=== PATIENT | male | born 1955 | race Caucasian/White ===

== ENCOUNTER → 2017-12-04 | Outpatient (CLI) | payer OTHER ==
[~2017-12-04] MED LIST: AMIT25 PO; Actos15 MG PO; CIPRO500 MG PO; DICL75ER PO; Florastor250 MG PO; HYDACE5 PO; Hydrocodone-Ap1 EA20 PO; LEVFLO500 PO; LISI20 PO; Lisinopril2.5 MG PO; MELO7.5 PO; METF500 PO; METO25ER PO; NITR.4SL SL; NORT75 PO; NUTRISOURCE FIBE4 GM PO; PRAV20 PO; Plavix75 MG PO; QUET100; QUET200 PO; Rocephin 1g1 G/50 ML IV; SANTYL30 GM TOP; SERT100 PO; Seroquel Xr50 MG PO; TRAZ100 PO; TRAZ50 PO
[2017-12-04 16:30] LABS: BASOPHILS ABSOLUTE AUTO 0.03 K/mm3 (0.00-0.23); BASOPHILS PERCENT AUTO 0 % (0-2); EOSINOPHILS ABSOLUTE AUTO 0.27 K/mm3 (0.00-0.68); EOSINOPHILS PERCENT AUTO 3 % (0-6); Hematocrit 38.8 % (37.0-53.0); Hemoglobin 12.8 g/dL (13.5-17.5); IMMATURE GRAN ABSOLUTE AUTO 0.06 K/mm3 (0.00-0.10); IMMATURE GRAN PERCENT AUTO 1 % (0-1); LYMPHOCYTES ABSOLUTE AUTO 2.01 K/mm3 (0.84-5.20); LYMPHOCYTES PERCENT AUTO 22 % (21-46); MONOCYTES PERCENT AUTO 8 % (4-13); Mean Corpuscular HGB 28.3 pg (26.0-34.0); Mean Corpuscular Volume 86 fL (80-100); Mean Platelet Volume 10.3 fL (9.1-12.4); NEUTROPHILS ABSOLUTE AUTO 6.14 K/mm3 (1.96-9.15); NEUTROPHILS PERCENT AUTO 67 % (41-73); Platelet Count 116 K/mm3 (150-400); RDW Coefficient Variation 13.7 % (11.7-14.2); RDW Standard Deviation 42.3 fL (35.1-46.3); Red Blood Cell Count 4.53 M/mm3 (4.30-5.90); White Blood Cell Count 9.21 K/mm3 (4.00-11.30)
[2017-12-04 16:50] LABS: Alanine Aminotransfer (ALT/SGP 21 U/L (12-78); Albumin, Blood 3.7 g/dL (3.4-5.0); Alk Phos 61 U/L (40-126); Anion Gap 11 mmol/L (6-16); Aspartate Aminotrans (AST/SGOT 13 U/L (12-37); Bilirubin, Total 0.2 mg/dL (0.1-1.0); Blood Urea Nitrogen 20 mg/dL (8-24); CO2, Blood 24 mmol/L (21-32); Chloride, Blood 103 mmol/L (98-108); Creatinine, Blood 1.81 mg/dL (0.60-1.20); Globulin, Blood 3.7 g/dL (2.2-4.0); Glomerular Filtration Rate 38 (60-); Glucose, Blood 119 mg/dL (70-99); Magnesium, Blood 1.6 mg/dL (1.6-2.4); Potassium, Blood 4.8 mmol/L (3.5-5.5); Sodium, Blood 138 mmol/L (136-145); Thyroid Stimulating Hormone 2.639 uIU/mL (0.360-4.800); Total Protein, Blood 7.4 g/dL (6.4-8.2)
[2017-12-04 16:51] LABS: Troponin I <0.017 ng/mL (0.000-0.040)
== END ==
LOC: LAB EV 16:26 → LAB SHORT 16:26
PROVIDERS: Physician Assistant Medical
DX: R07.89 Other chest pain (principal); R53.83 Other fatigue
CPT/HCPCS: 80053; 83735; 84443; 84484; 85025

== ENCOUNTER 2017-12-06 12:21 | Day surgery (SDC) | payer OTHER ==
[~2017-12-06] VITALS: Ht 182.9 cm; Wt 100.9 kg
== END 2017-12-06 14:57 | disposition home or self-care (01) ==
LOC: ORSCSDS 12:21
PROVIDERS: Podiatrist
PROC: 0QBP0ZX Excision of Left Metatarsal, Open Approach, Diagnostic (ICD-10-PCS; principal; 2017-12-06 13:45)
DX: L97.422 Non-pressure chronic ulcer of left heel and midfoot with fat layer exposed (principal); E11.621 Type 2 diabetes mellitus with foot ulcer; M25.775 Osteophyte, left foot; Z79.899 Other long term (current) drug therapy; I10 Essential (primary) hypertension
CPT/HCPCS: 82947; 88305; 88311; J0690; J1100; J2250; J2405; J3010; J7120

== ENCOUNTER → 2018-10-02 | Outpatient (CLI) | payer OTHER | LOC: LAB SHORT 16:58 → LAB EV 16:58 | DX: E11.22 Type 2 diabetes mellitus with diabetic chronic kidney disease (principal); N18.9 Chronic kidney disease, unspecified | CPT/HCPCS: 82043 ==

== ENCOUNTER → 2020-02-19 | Outpatient (CLI) | payer OTHER, MEDICARE ==
[2020-02-19 16:31] LABS: BASOPHILS ABSOLUTE AUTO 0.05 K/mm3 (0.00-0.23); BASOPHILS PERCENT AUTO 1 % (0-2); EOSINOPHILS ABSOLUTE AUTO 0.24 K/mm3 (0.00-0.68); EOSINOPHILS PERCENT AUTO 3 % (0-6); Hematocrit 36.7 % (37.0-53.0); Hemoglobin 11.5 g/dL (13.5-17.5); IMMATURE GRAN ABSOLUTE AUTO 0.02 K/mm3 (0.00-0.10); IMMATURE GRAN PERCENT AUTO 0 % (0-1); LYMPHOCYTES ABSOLUTE AUTO 1.82 K/mm3 (0.84-5.20); LYMPHOCYTES PERCENT AUTO 24 % (21-46); MONOCYTES ABSOLUTE AUTO 0.62 K/mm3 (0.16-1.47); MONOCYTES PERCENT AUTO 8 % (4-13); Mean Corpuscular HGB 23.7 pg (26.0-34.0); Mean Corpuscular HGB Conc 31.3 g/dL (31.5-36.5); Mean Corpuscular Volume 76 fL (80-100); Mean Platelet Volume 9.4 fL (9.1-12.4); NEUTROPHILS PERCENT AUTO 64 % (41-73); Platelet Count 164 K/mm3 (150-400); RDW Coefficient Variation 19.4 % (11.7-14.2); RDW Standard Deviation 51.3 fL (35.1-46.3); Red Blood Cell Count 4.85 M/mm3 (4.30-5.90); White Blood Cell Count 7.55 K/mm3 (4.00-11.30)
[2020-02-19 16:42] LABS: Albumin/Globulin Ratio 1.1 (0.8-1.8); Bilirubin, Total 0.2 mg/dL (0.1-1.0); Calcium, Blood 8.9 mg/dL (8.5-10.1); Creatinine, Blood 1.44 mg/dL (0.60-1.20); Globulin, Blood 3.5 g/dL (2.2-4.0); Potassium, Blood 4.8 mmol/L (3.5-5.5); Total Protein, Blood 7.5 g/dL (6.4-8.2)
== END | disposition home or self-care (01) ==
LOC: LAB SHORT 16:25 → LAB EV 16:25
PROVIDERS: Family Medicine
DX: R11.2 Nausea with vomiting, unspecified (principal)
CPT/HCPCS: 80053; 85025

== ENCOUNTER 2020-03-23 07:08 | Emergency (ER) | payer OTHER, MEDICARE ==
[~2020-03-23] VITALS: Ht 182.9 cm; Wt 85.7 kg
[2020-03-23] MEDS ORDERED: ZOFRAN4 MG PO (07:56)
[2020-03-23] MEDS ORDERED: TRAZODONE TAB 100 (07:56)
[2020-03-23] MEDS ORDERED: FARXIGA5 MG (07:56)
[2020-03-23] MEDS ORDERED: DICL75ER PO (07:56)
[2020-03-23] MEDS ORDERED: QUETIAPINE FUMA50 MG PO (07:57)
[2020-03-23] MEDS ORDERED: CYCLOBENZAPR TAB 10M (07:57)
[2020-03-23] MEDS ORDERED: DULOXETINE HCL60 M1 PO (07:57)
[2020-03-23] MEDS ORDERED: METFORMIN HCL500 M2 PO (07:57)
[2020-03-23] MEDS ORDERED: LISINOPRIL TAB 5MG (07:57)
[2020-03-23] MEDS ORDERED: Pravachol40 MG PO (07:57)
[2020-03-23 08:41] LABS: BASOPHILS ABSOLUTE AUTO 0.02 K/mm3 (0.00-0.23); BASOPHILS PERCENT AUTO 0 % (0-2); EOSINOPHILS ABSOLUTE AUTO 0.13 K/mm3 (0.00-0.68); EOSINOPHILS PERCENT AUTO 2 % (0-6); Hematocrit 38.5 % (37.0-53.0); Hemoglobin 11.5 g/dL (13.5-17.5); IMMATURE GRAN ABSOLUTE AUTO 0.03 K/mm3 (0.00-0.10); IMMATURE GRAN PERCENT AUTO 0 % (0-1); LYMPHOCYTES ABSOLUTE AUTO 0.36 K/mm3 (0.84-5.20); LYMPHOCYTES PERCENT AUTO 5 % (21-46); MONOCYTES ABSOLUTE AUTO 0.59 K/mm3 (0.16-1.47); MONOCYTES PERCENT AUTO 8 % (4-13); Mean Corpuscular HGB 23.3 pg (26.0-34.0); Mean Corpuscular HGB Conc 29.9 g/dL (31.5-36.5); Mean Corpuscular Volume 78 fL (80-100); NEUTROPHILS ABSOLUTE AUTO 5.96 K/mm3 (1.96-9.15); NEUTROPHILS PERCENT AUTO 84 % (41-73); RDW Coefficient Variation 17.9 % (11.7-14.2); RDW Standard Deviation 50.7 fL (35.1-46.3); Red Blood Cell Count 4.94 M/mm3 (4.30-5.90); White Blood Cell Count 7.09 K/mm3 (4.00-11.30)
[2020-03-23 08:50] LABS: Alanine Aminotransfer (ALT/SGP 23 U/L (12-78); Albumin, Blood 3.5 g/dL (3.4-5.0); Albumin/Globulin Ratio 0.8 (0.8-1.8); Alk Phos 75 U/L (50-136); Anion Gap 7 mmol/L (6-16); Aspartate Aminotrans (AST/SGOT 18 U/L (12-37); Bilirubin, Total 0.3 mg/dL (0.1-1.0); Blood Urea Nitrogen 19 mg/dL (8-24); Bun/Creatinine Ratio 14.7 (12.0-20.0); CO2, Blood 21 mmol/L (21-32); Calcium, Blood 8.6 mg/dL (8.5-10.1); Chloride, Blood 106 mmol/L (98-108); Creatinine, Blood 1.29 mg/dL (0.60-1.20); Globulin, Blood 4.2 g/dL (2.2-4.0); Glomerular Filtration Rate 59 (60-); Glucose, Blood 276 mg/dL (70-99); Potassium, Blood 3.2 mmol/L (3.5-5.5); Sodium, Blood 134 mmol/L (136-145); Total Protein, Blood 7.7 g/dL (6.4-8.2)
[2020-03-23 08:52] LABS: Troponin I <0.015 ng/mL (0.000-0.040)
[2020-03-23 09:12] LABS: Platelet Count 45 K/mm3 (150-400)
[2020-03-23] MEDS ORDERED: POTA10T PO (09:31)
[2020-03-23] MEDS ORDERED: ONDA4 MM (09:31)
== END 2020-03-23 10:20 | disposition home or self-care (01) ==
LOC: ER 07:08
PROVIDERS: Emergency Medicine
DX: R55 Syncope and collapse (principal); R19.7 Diarrhea, unspecified; E87.6 Hypokalemia; E86.0 Dehydration; D69.6 Thrombocytopenia, unspecified; F10.10 Alcohol abuse, uncomplicated; Z88.2 Allergy status to sulfonamides; Z88.5 Allergy status to narcotic agent; Z79.84 Long term (current) use of oral hypoglycemic drugs; Z79.899 Other long term (current) drug therapy; E11.42 Type 2 diabetes mellitus with diabetic polyneuropathy; K21.9 Gastro-esophageal reflux disease without esophagitis
CPT/HCPCS: 36415; 80053; 83690; 84484; 85025; 93005; 93010; 96360; 99284-25; A9270; A9270-GY; J7030

== ENCOUNTER → 2020-04-27 | Outpatient (CLI) | payer OTHER, MEDICARE ==
[~2020-04-27] MED LIST changes: +CYCLOBENZAPR TAB 10M; +DULOXETINE HCL60 M1 PO; +FARXIGA5 MG; +LISINOPRIL TAB 5MG; +METFORMIN HCL500 M2 PO; +ONDA4 MM; +POTA10T PO; +Pravachol40 MG PO; +QUETIAPINE FUMA50 MG PO; +TRAZODONE TAB 100; +ZOFRAN4 MG PO
[2020-04-29 14:43] LABS: Stool Occult Bld Immuno 1 Negative (NEGATIVE)
== END | disposition home or self-care (01) ==
LOC: LAB SHORT 03:00 → LAB EV 03:00
PROVIDERS: Physician Assistant
DX: D64.9 Anemia, unspecified (principal)
CPT/HCPCS: 82274

== ENCOUNTER → 2020-07-14 | Outpatient (CLI) | payer OTHER, MEDICARE ==
[2020-07-16 15:20] LABS: CORONAVIRUS (COVID19) CSH-NRL Negative (Negative)
== END ==
LOC: LAB SHORT 13:37 → LAB 13:37
PROVIDERS: Physician Assistant
DX: Z20.828 Contact with and (suspected) exposure to other viral communicable diseases (principal)
CPT/HCPCS: U0003

== ENCOUNTER 2021-01-24 11:02 | Day surgery (SDC) | payer OTHER ==
[~2021-01-24] VITALS: Ht 182.9 cm; Wt 87.9 kg
[~2021-01-24 11:02] MED LIST changes: +CYCL10 PO; +GLUCOPHAGE1000 M1 PO; +NORTRIPTYLINE H PO; +PRAVASTATIN SOD40 MG PO; +Prozac40 MG PO; +SILVADENE20 GM; +Voltaren100 GM TOP
--- NOTE | 2021-01-24 11:40 | NUR ---
01/24/21 1139 Hannah Servni, RN CHARTING FOR PREOP
== END 2021-01-24 13:41 | disposition home or self-care (01) ==
LOC: ORSCSDS 11:02
PROVIDERS: Podiatrist Foot & Ankle Surgery
PROC: 0Y6P0Z1 Detachment at Right 1st Toe, High, Open Approach (ICD-10-PCS; principal; 2021-01-24 12:30)
DX: E08.621 Diabetes mellitus due to underlying condition with foot ulcer (principal); F41.8 Other specified anxiety disorders; Z79.84 Long term (current) use of oral hypoglycemic drugs; Z79.899 Other long term (current) drug therapy
CPT/HCPCS: 82947; 88305; 88311; J0171; J0690; J1100; J1885; J2405; J2704; J3010; J7120

== ENCOUNTER 2021-05-16 01:22 | Day surgery (SDC) | payer OTHER | END 2021-05-16 23:04 | disposition home or self-care (01) | LOC: WOUND 01:22 | PROC: 0HBNXZZ Excision of Left Foot Skin, External Approach (ICD-10-PCS; principal; 2021-05-16) | PROC: 0JBR0ZZ Excision of Left Foot Subcutaneous Tissue and Fascia, Open Approach (ICD-10-PCS; principal; 2021-05-16) | DX: E11.621 Type 2 diabetes mellitus with foot ulcer (principal); L97.422 Non-pressure chronic ulcer of left heel and midfoot with fat layer exposed; L97.425 Non-pressure chronic ulcer of left heel and midfoot with muscle involvement without evidence of necrosis; E11.622 Type 2 diabetes mellitus with other skin ulcer; L97.829 Non-pressure chronic ulcer of other part of left lower leg with unspecified severity; L97.529 Non-pressure chronic ulcer of other part of left foot with unspecified severity; E11.52 Type 2 diabetes mellitus with diabetic peripheral angiopathy with gangrene; I96 Gangrene, not elsewhere classified; E11.42 Type 2 diabetes mellitus with diabetic polyneuropathy; M14.672 Charcot's joint, left ankle and foot; Z89.411 Acquired absence of right great toe | CPT/HCPCS: A9270; G0463 ==

== ENCOUNTER 2021-05-18 10:13 | Inpatient (IN) | payer OTHER ==
[~2021-05-18] VITALS: Ht 182.9 cm; Wt 85.8 kg
[2021-05-18 11:23] LABS: BASOPHILS ABSOLUTE AUTO 0.07 K/mm3 (0.00-0.23); BASOPHILS PERCENT AUTO 0 % (0-2); EOSINOPHILS ABSOLUTE AUTO 0.12 K/mm3 (0.00-0.68); EOSINOPHILS PERCENT AUTO 1 % (0-6); Hematocrit 37.6 % (37.0-53.0); Hemoglobin 12.1 g/dL (13.5-17.5); IMMATURE GRAN ABSOLUTE AUTO 0.16 K/mm3 (0.00-0.10); IMMATURE GRAN PERCENT AUTO 1 % (0-1); LYMPHOCYTES ABSOLUTE AUTO 0.71 K/mm3 (0.84-5.20); LYMPHOCYTES PERCENT AUTO 4 % (21-46); MONOCYTES PERCENT AUTO 9 % (4-13); Mean Corpuscular HGB 27.3 pg (26.0-34.0); Mean Corpuscular HGB Conc 32.2 g/dL (31.5-36.5); Mean Corpuscular Volume 85 fL (80-100); NEUTROPHILS PERCENT AUTO 85 % (41-73); Platelet Count 72 K/mm3 (150-400); RDW Coefficient Variation 15.4 % (11.7-14.2); Red Blood Cell Count 4.44 M/mm3 (4.30-5.90); White Blood Cell Count 18.46 K/mm3 (4.00-11.30)
[2021-05-18 11:39] LABS: Alanine Aminotransfer (ALT/SGP 24 U/L (12-78); Albumin, Blood 2.5 g/dL (3.4-5.0); Albumin/Globulin Ratio 0.5 (0.8-1.8); Alk Phos 123 U/L (50-136); Anion Gap 11 mmol/L (6-16); Aspartate Aminotrans (AST/SGOT 12 U/L (12-37); Bilirubin, Total 0.4 mg/dL (0.1-1.0); Blood Urea Nitrogen 16 mg/dL (8-24); Bun/Creatinine Ratio 14.5 (12.0-20.0); CO2, Blood 21 mmol/L (21-32); Calcium, Blood 9.2 mg/dL (8.5-10.1); Chloride, Blood 102 mmol/L (98-108); Globulin, Blood 5.3 g/dL (2.2-4.0); Glomerular Filtration Rate >60 (60-); Glucose, Blood 210 mg/dL (70-99); Potassium, Blood 4.5 mmol/L (3.5-5.5); Sodium, Blood 134 mmol/L (136-145); Total Protein, Blood 7.8 g/dL (6.4-8.2)
[2021-05-18 12:23] LABS: SARS-Cov-2 (COVID-19) PCR, MMC POSITIVE (NEGATIVE)
[2021-05-18] MEDS ORDERED: AMITRIPTYLINE H25 MG PO (12:27)
[2021-05-18] MEDS ORDERED: TRAZ100 PO (12:28)
[2021-05-18] MEDS ORDERED: DICL75ER PO (12:28)
[2021-05-18] MEDS ORDERED: LEVOCETIRIZINE D5 MG PO (12:29)
[2021-05-18] MEDS ORDERED: FARXIGA5 MG PO (12:29)
[2021-05-18] MEDS ORDERED: DULOXETINE HCL60 M1 PO (12:30)
[2021-05-18] MEDS ORDERED: METFORMIN HCL500 M2 PO (12:30)
[2021-05-18] MEDS ORDERED: SEROQUEL50 MG PO (12:30)
--- NOTE | 2021-05-18 15:00 | NUR ---
PT ARRIVED TO ROOM 313-2 VIA GURNEY AND SETTLED IN TO BED. A/OX3. COOPERATIVE AND INFORMATIVE. LLE WITH WARMTH AND SWELLING MID CALF TO FOOT. WOUND TO LATERAL SIDE OF FOOT AND LARGE BLISTER OR ABSCESS TO MEDIAL SECTION OF FOOT. REPORTS PAIN WORSENED OVER LAST 2 TO 3 DAYS.
--- NOTE | 2021-05-18 18:51 | NUR ---
SHIFT SUMMARY DR. MIGUEL GUTIERREZ IN TO SEE PT WITH ORDERS TO BE NPO AFTER MIDNIGHT. PLANS FOR SURGERY TOMORROW. DRESSING APPLIED TO L FOOT DUE TO DRAINAGE. PLEASANT THROUGH SHIFT WITH NO COMPLAINTS. REPORT CONDITION TO ONCOMING SHIFT.
[2021-05-19 05:14] LABS: BASOPHILS ABSOLUTE AUTO 0.05 K/mm3 (0.00-0.23); BASOPHILS PERCENT AUTO 1 % (0-2); EOSINOPHILS ABSOLUTE AUTO 0.16 K/mm3 (0.00-0.68); EOSINOPHILS PERCENT AUTO 2 % (0-6); Hemoglobin 10.3 g/dL (13.5-17.5); IMMATURE GRAN ABSOLUTE AUTO 0.16 K/mm3 (0.00-0.10); IMMATURE GRAN PERCENT AUTO 2 % (0-1); LYMPHOCYTES ABSOLUTE AUTO 0.75 K/mm3 (0.84-5.20); LYMPHOCYTES PERCENT AUTO 7 % (21-46); MONOCYTES ABSOLUTE AUTO 1.16 K/mm3 (0.16-1.47); MONOCYTES PERCENT AUTO 11 % (4-13); Mean Corpuscular HGB Conc 32.2 g/dL (31.5-36.5); Mean Corpuscular Volume 84 fL (80-100); Mean Platelet Volume 10.3 fL (9.1-12.4); NEUTROPHILS ABSOLUTE AUTO 8.01 K/mm3 (1.96-9.15); NEUTROPHILS PERCENT AUTO 78 % (41-73); Platelet Count 71 K/mm3 (150-400); RDW Coefficient Variation 15.5 % (11.7-14.2); RDW Standard Deviation 47.3 fL (35.1-46.3); Red Blood Cell Count 3.82 M/mm3 (4.30-5.90); White Blood Cell Count 10.29 K/mm3 (4.00-11.30)
--- NOTE | 2021-05-19 05:37 | NUR ---
SHIFT SUMMARY; AOX3, COOPERATIVE. LEFT FOOT CELLULITIS, REDNESS UP TO ANKLE AREA. MEDIAL SIDE OF FOOT HAS A LARGE BLISTER FORMED AREA THAT IS DRAINING SEROUS FLUID, ON THE LATERAL SIDE OF THE FOOT THERE IS ULCER THAT IS ALSO DRAINING. INDEPENDENT WITH URINAL. IVF INFUSING ALL NIGHT. SPIKED A TEMP OF 101 BUT ON REPEAT WAS 99.2. SLEPT WELL T/O THE NIGHT. OCCATIONAL TACHYCARDIA IN THE LOW 100'S. POSITIVE BLOOD CULTURES GRAM + COCCI IN CLUSTERS, ON VANCO. CALL LIGHT IN REACH.
[2021-05-19 05:51] LABS: Alanine Aminotransfer (ALT/SGP 26 U/L (12-78); Albumin, Blood 2.1 g/dL (3.4-5.0); Albumin/Globulin Ratio 0.5 (0.8-1.8); Alk Phos 120 U/L (50-136); Anion Gap 6 mmol/L (6-16); Aspartate Aminotrans (AST/SGOT 26 U/L (12-37); Bilirubin, Total 0.3 mg/dL (0.1-1.0); Blood Urea Nitrogen 17 mg/dL (8-24); CO2, Blood 24 mmol/L (21-32); Calcium, Blood 8.6 mg/dL (8.5-10.1); Chloride, Blood 103 mmol/L (98-108); Creatinine, Blood 1.13 mg/dL (0.60-1.20); Globulin, Blood 4.4 g/dL (2.2-4.0); Glomerular Filtration Rate >60 (60-); Glucose, Blood 184 mg/dL (70-99); Sodium, Blood 133 mmol/L (136-145); Total Protein, Blood 6.5 g/dL (6.4-8.2)
--- NOTE | 2021-05-19 09:47 | NUR ---
ADMIT: 05/18/21 DISCHARGE: TBD DX: celulitis of L lower limb CC: Yolanda Deleon RESIDENCE: Independent - Home - [facility] [address], [place]. [address] Next of Kin/Contacts: Afshan Dueñas, - [phone]. Felix Dueñas, Child - [phone] Prior to admit - DME: DM supplies and Walker CCM: None HHC/Hospice: None Update 05/19/21: Pt. admitted with celulitis of L lower limb. Has been receiving care at wound center. Per chart review, amputation is necessary and pt. currently in surgery. Pt. is COVID positive with notes in EMR that pt. initially tested positive on 04/16/21. Prior to hospital admit, pt. living at home with Afshan. He has been independent with 's support. Anticipate needs at time of discharge to include: SNF rehab (pt. has [facility] - will need prior auth), wheelchair, hospital F/U appt. within 5-7 days with pcp, ortho F/U appt.
--- NOTE | 2021-05-19 10:45 | NUR ---
PT TEMP INCREASED FROM 100.5 TO 101.0 DESPITE GIVING TYLENOL. WILL CONTINUE TO MONITOR AND REPORT IF TEMP CONTINUES TO INCREASE.
--- NOTE | 2021-05-19 13:26 | NUR ---
WOUND DRESSING CHANGED. WOUND CLEANSED AND APPLIED EXUDRYX2, WRAPPED W/KERLEX AND TAPED INTO PLACE. WOUND HAS LARGE AMOUNT OF PURULENT DRAINAGE.
[2021-05-19 14:17] LABS: SARS-Cov-2 (COVID-19) PCR, MMC POSITIVE (NEGATIVE)
--- NOTE | 2021-05-19 17:19 | NUR ---
SHIFT SUMMARY: PT A/O X3, STANDBY ASSIST IN ROOM. 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 PT HAD ELEVATED TEMPERATURE THIS AM, TYLENOL EFFECTIVE IN TREATING. PT PAIN MANAGED WITH TYLENOL ALSO. PLAN IS FOR PT TO COME BACK TO THE MEDICAL FLOOR ONCE PT HAS RECOVERED.
--- NOTE | 2021-05-19 19:10 | NUR ---
ASSUMED CARE. AIYANA ARRIVED FROM OR SLEEPY BUT AWAKE. BEDSIDE REPORT RECEIVED. AIYANA REPORTS PAIN IS "OK" DOES HAVE SHARP INTERMINTENT PAIN IN THE AMPUTATION. HE RECEIVED 8MG OF MORPHINE AT WHICH I WAS TOLD DID NOT COVER HIS PAIN, 1MG OF DILUDID WAS GIVEN AFTERWARDS BEFORE COMING TO THE FLOOR. AIYANA DOES REPORT PAIN IN THROAT, DUE TO TUBE IN THROAT. LBKA DRESSING IS CDI WITH SOCK OVER IT, ELEVATED ON PILLOW. ASKING FOR WATER. VS WNL AT THIS TIME. CALL LIGHT GIVEN. START OF POST-OP CARE.
--- NOTE | 2021-05-19 21:00 | NUR ---
GRASSLAND CONSERVATIONIST GIVE PUDDING, AIYANA WAS ONLY ABLE TO TAKE A FEW BITES STATE HIS THROAT IS REALLY SORE, VOICE IS NOTED TO HAVE CHANGED. NOTED TONGUE WAS SLIGHTLY SWOLLEN, WAS ABLE TO VISUALIZE BACK OF THROAT WHICH WAS RED. HE DID HAVE SOME DIFFICULT TIME TALKING HE SAID WAS DUE TO PAIN. WHEN ASKED IF HE FELT HIS THROAT WAS SWOLLEN HE SAID NO JUST HIS TONGUE. LUNG SOUNDS WERE CLEAR, OCCATIONAL COUGH DUE TO SILIVA IN THROAT. ABLE TO SWOLLEN HIS TRAZADONE ONE AT A TIME BUT HE REPORTED AGAIN PAIN WHEN DOING SO. HE WANTED TO WAIT ON HIS OTHER MEDS AT THIS TIME, WHICH WAS LEFT FOR HIM TO TAKE ONE AT A TIME WHEN HE THROAT WAS NOT HURTING SO BAD. CALL LIGHT IN REACH, WILL CONTINUE TO MONITOR.
--- NOTE | 2021-05-19 22:40 | NUR ---
RAPID RESPONSE/CODE JESSICA: 2144: WENT TO ANSER CALL LIGHT, FOUND PATIENT SITTING IN SIDE OF BED. GRUNTING AND TRYING TO CATCH HIS BREATH. TONGUE WAS NOTED TO BE ENLARGED, SWOLLEN, PATIENT UNABLE TO CLOSE HIS MOUTH, SIGNALING TO HIS THROAT THAT HE COULD NOT BREATH. NOTED EVEN HIS THROAT WAS SWOLLEN. 2150: CYLINDER SANDER OPERATOR CALLED, PLACED PATIENT ON BIOX, SATS 97% ON 3 LITERS, UNABLE TO VISUALIZE BACK OF HIS THROAT DUE TO AIRWAY OCCLUDED DUE TO SWELLING. TEAM ARRIVED. 2199: BENADRYL 25MG IV GIVEN, NO CHANGE. 2203: CODE JESSICA CALLED. ICU NURSE IN CHARGE OF IV PUSH MEDICATIONS. RT TRYING TO VISUALIZE INTUBATION FEILD, WHICH IS DIFFICULT TO SEE. PATIENT WENT UNCONSCIOUS, PULSE STILL PALPITABLE. SEVERAL ATTEMPTS WERE MADE TO INTUBATE WITH NO SUCCESS. CALL FOR EDGAR NAVARRETE. 2211: PATIENT INTUBATED AND RT AT BEDSIDE WITH AIRBAG. SATS 100%, RISE OF CHEST NOTED. PLAN FOR ICU TRANSFER. VITALS 141/79, 99% ON VENT. 114 PULSE. 2225: XRAY TO CONFIRM PLACEMENT. ICU NOTIFED OF TRANSFER. PATIENT TO GO TO PCU 14. 2231: PATIENT TRANSFERRED. 2240: MILVIA INFORMED OF THE PATIENTS CHANGE. SHE DENIED ANY OTHER KNOWN ALLERGIES TO MEDICATIONS OTHER THAN OXYCODONE. CONFIRMED HE HAD DILUDID SEVERAL TIMES IN THE PAST AND DID FINE. SHE DID MENTION THAT FAR SHE KNEW HE HAS NEVER HAD MORPHINE BEFORE. SHE WILL CALL IN AM BUT IS AWARE OF TRANSFER.
[2021-05-20 02:15] LABS: Source, Urine Catheter
[2021-05-20 02:18] LABS: Bilirubin, Urine Neg (Neg); Blood, Urine 3+ (Neg); Glucose Qualitative, Urine 4+ (Neg); Ketones, Urine 3+ (Neg); Leukocyte Esterase, Urine Neg (Neg); Nitrite, Urine Neg (Neg); Protein, Urine 3+ (Neg); Urobilinogen, Urine NORM (Normal)
[2021-05-20 02:20] LABS: Appearance, Urine Clear (Clear); Color, Urine Yellow (P-Yellow)
[2021-05-20 02:24] LABS: Bacteria Few /hpf; Mucus Light (0-Heavy); Red Blood Cells, Urine 0-2 /hpf (0-2); Squamous Epithelial Cells Not Seen /hpf (Few); White Blood Cells, Urine 0-2 /hpf (0-5)
[2021-05-20 02:25] LABS: Amorphous Light (0-Heavy)
--- NOTE | 2021-05-20 07:31 | NUR ---
Assumed care of pt at 0700. Report received from Agus PICKETT. Pt initially in airborne isolation due to COVID. Per health department, pt does not need to be isolation anymore. At bedside report, pt was agitated. Sitting up in bed, pulling against restraints. High risk of self-extubation. Propofol increased to 75 mcg/kg/min. Fentanyl at 50 mcg/hr. Versed drip ordered, but has not yet been verified by pharmacy. debt management counselor placed call to Dr Betancourt to notify that pt was highly agitated and at risk of self-extubation. Provider ordered airport duty manager consult. Dr Agee at bedside shortly afterwards. Stated she would order ativan and precedex; precedex to be used for wean. Plan to have RT check patient for cuff leak and then evaluate if pt can be extubated.
--- NOTE | 2021-05-20 07:36 | NUR ---
SHIFT SUMMARY PT ARRIVED TO PCU 14 VENTILATED c OUT SEDATION. RSI PERFORMED FOR AIRWAY PROTECTION SECONDARY TO ANGIOEDEMA FROM POTENTIAL MEDICATION REACTION ON MEDICAL FLOOR. PT POST OP L BKA, DRESSING IN PLACE, BLOOD TINGE TO DRESSING ON ARRIVAL BUT NO CHANGES TO AMNT OF BLOOD T/O THE MORNING. FENTANYL GTT INITIATED @ 25MCG/HR, INCREASED TO 50MCG/HR DURING THE NIGHT, AND PROPOFOL GTT @ 30MCG/KG/MIN. ROMAN CATH AND PERIPHERAL 18 GA IV ESTABLISHED. PT INITIALLY RECOVERING FROM RSI MEDICATIONS AND UNRESPONSIVE, SEE PAPER CHART FOR MEDICATONS. T/O THE MORNING PT BECAME MORE RESPONSIVE, FOLLOWING COMMANDS BUT WOULD QUICKLY BECOME SEDATE WITH SMALL TITRATIONS TO PROPOFOL. AROUND 0600, PT SAT UP IN BED, VIOLENTLY PULLING AT RESTRAINTS. PROPOFOL TITRATED WITH LITTLE EFFECT. HOSPITALIST NOTIFIED, NEW ORDERS FOR VERSED GTT AND LOW DOSE LEVOPHED. NEWSPAPER STUFFER ALSO CALLED AND ARRIVED SHORTLY AFTER SHIFT CHANGE. NEW ORDERS CURRENTLY BEING PLACED. REPORT GIVEN TO ONCOMING NURSE.
[2021-05-20 13:51] LABS: Vancomycin, Trough 11.7 ug/mL (5.0-10.0)
--- NOTE | 2021-05-20 18:31 | NUR ---
Dr Mcgee in to see patient. Provider performed dressing change to site of L BKA.
--- NOTE | 2021-05-20 18:34 | NUR ---
SUMMARY Neuro: Pt receiving propofol 65 mcg/kg/min, fentanyl 50 mcg/hr, versed 2 mcg/hr. Responsive to verbal stimulus / light pressure. When on bar turner sedation, pt highly interactive- mouthing words to staff and pulling on restraints. Musculoskeletal: Pt currently laying on L side. Sits up in bed when on bar turner sedation. Currently being repositioned Q2H. In restraints to prevent self-extubation. Respiratory: 6.5 cm ETT, 26 cm ATG. Lungs coarse t/o. Bright %.red sputum suctioned from ETT. Vent settings ACVC 18/470/5/30%. RT assessed cuff leak this afternoon and cuff leak was absent still. Cardiac: SR per monitor. BP stable. GI: OG tube to LIS. Scant amount of brown aspirate in tubing. Absent BT. No BM this shift. : Denton catheter in place draining clear, yellow urine. Skin: Dressing to L BKA site changed this shift by Dr Jeremy Mcgee. Drain removed by provider. Site has staple, dressed with sterile gauze, ABD pad, kerlex, and radha wrap. Psychosocial: Unable to assess due to intubation, sedation. Spouse updated today by this RN.
--- NOTE | 2021-05-20 19:15 | NUR ---
report received-care resumed
[2021-05-21 03:45] LABS: BASOPHILS ABSOLUTE AUTO 0.04 K/mm3 (0.00-0.23); BASOPHILS PERCENT AUTO 0 % (0-2); EOSINOPHILS ABSOLUTE AUTO 0.05 K/mm3 (0.00-0.68); EOSINOPHILS PERCENT AUTO 0 % (0-6); Hematocrit 32.5 % (37.0-53.0); Hemoglobin 10.6 g/dL (13.5-17.5); IMMATURE GRAN ABSOLUTE AUTO 1.31 K/mm3 (0.00-0.10); IMMATURE GRAN PERCENT AUTO 8 % (0-1); LYMPHOCYTES ABSOLUTE AUTO 0.77 K/mm3 (0.84-5.20); LYMPHOCYTES PERCENT AUTO 5 % (21-46); MONOCYTES ABSOLUTE AUTO 1.04 K/mm3 (0.16-1.47); MONOCYTES PERCENT AUTO 7 % (4-13); Mean Corpuscular HGB 27.2 pg (26.0-34.0); Mean Corpuscular HGB Conc 32.6 g/dL (31.5-36.5); Mean Corpuscular Volume 84 fL (80-100); Mean Platelet Volume 10.7 fL (9.1-12.4); NEUTROPHILS ABSOLUTE AUTO 12.68 K/mm3 (1.96-9.15); NEUTROPHILS PERCENT AUTO 80 % (41-73); Platelet Count 138 K/mm3 (150-400); RDW Coefficient Variation 15.9 % (11.7-14.2); Red Blood Cell Count 3.89 M/mm3 (4.30-5.90); White Blood Cell Count 15.89 K/mm3 (4.00-11.30)
[2021-05-21 04:04] LABS: BAND PERCENT MAN 5 % (0-8); BASOPHILS PERCENT MAN 0 % (0-2); EOSINOPHILS PERCENT MAN 0 % (0-6); LYMPHOCYTES ABSOLUTE MAN 0.79 K/mm3 (0.84-5.20); LYMPHOCYTES PERCENT MAN 5 % (21-46); METAMYELOCYTE ABSOLUTE MAN 0.63 K/mm3 (0.00-0.00); METAMYELOCYTE PERCENT MAN 4 % (0-0); MONOCYTES ABSOLUTE MAN 0.79 K/mm3 (0.16-1.47); MONOCYTES PERCENT MAN 5 % (4-13); MYELOCYTE ABSOLUTE MAN 0.15 K/mm3 (0.00-0.00); MYELOCYTE PERCENT MAN 1 % (0-0); SEG NEUTROPHILS PERCENT MAN 80 % (41-73); TOTAL CELLS COUNTED 100
[2021-05-21 04:10] LABS: Alanine Aminotransfer (ALT/SGP 34 U/L (12-78); Albumin/Globulin Ratio 0.5 (0.8-1.8); Alk Phos 116 U/L (50-136); Anion Gap 9 mmol/L (6-16); Aspartate Aminotrans (AST/SGOT 28 U/L (12-37); Bilirubin, Total 0.2 mg/dL (0.1-1.0); Blood Urea Nitrogen 29 mg/dL (8-24); Bun/Creatinine Ratio 31.7 (12.0-20.0); CO2, Blood 19 mmol/L (21-32); Calcium, Blood 8.4 mg/dL (8.5-10.1); Chloride, Blood 114 mmol/L (98-108); Creatinine, Blood 0.92 mg/dL (0.60-1.20); Globulin, Blood 4.1 g/dL (2.2-4.0); Glomerular Filtration Rate >60 (60-); Glucose, Blood 301 mg/dL (70-99); Potassium, Blood 4.6 mmol/L (3.5-5.5); Sodium, Blood 142 mmol/L (136-145); Total Protein, Blood 6.1 g/dL (6.4-8.2)
--- NOTE | 2021-05-21 06:04 | NUR ---
END OF SHIFT PT CONTINUES ON VENT-SEDATED. GTTS, RATES, AND VITALS NOTED IN FLOWSHEET. ASSESSMENTS Q4 NOTED UNDER SURGE SHIFT CHARTING. CONTINUE ASSESSMENTS AND CARE TILL REPORT OFF TO DAYSHIFT RN.
--- NOTE | 2021-05-21 07:15 | NUR ---
Assumed care of this ICU patient at 0700. Report recevied from Gloria PICKETT.
--- NOTE | 2021-05-21 10:57 | NUR ---
Dr Agee in to see patient. Provider confirmed that pt had cuff leak. Stated to perform SBT. RT Fabby notified. Sedation stopped. Precedex started. Currently 0.7 mcg/kg/hr. Vent settings PS 7/5 and 30% FiO2. RR 22, vT 400-600 mL.
--- NOTE | 2021-05-21 12:00 | NUR ---
Pt required full ventilator support after receiving 150 mcg fentanyl. SBT ended.
[2021-05-21 13:48] LABS: PCO2 Arterial 30.3 mmHg (35-45); PO2 Arterial 118 mmHg (80-100); pH Blood Arterial 7.39 (7.35-7.45)
--- NOTE | 2021-05-21 13:55 | NUR ---
PT EXTUBATED SUCCESSFULLY ON 2L NC, SATS 99%, HAS STRONG COUGH.
--- NOTE | 2021-05-21 14:20 | NUR ---
Pt became more alert. Dr Agee brought to bedside. Decision made to perform another SBT. Pt did well with 8/5 and 30% FiO2. Pt extubated at 1350 to 2 LPM NC. Pt immediately fell back asleep after extubation. RR 20. SpO2 97% with 2 LPM NC. Titrated to room air. Pt remains on 1 mcg/kg/hr precedex. Plan to titrate this down when pt is less hypertensive. Hypertensive BP readings correlate with agitation and anxiety. Discussed pt's response to [address] Agee. Provider states she will place new orders for pain tx. OG tube and restraints removed at time of extubation.
--- NOTE | 2021-05-21 18:13 | NUR ---
SUMMARY Neuro: Pt alert and oriented. Answers questions. Follows commands. Verbalizes needs. Cooperative with care at this time. Precedex is off. Musculoskeletal: Pt repositions independently in bed. Mobility limited by cords, lines, tubes, weakness, and new BKA- POD 2. Respiratory: Extubated today. Lungs coarse t/o. Occasional dry, nonproductive cough noted. Pt on room air. SpO2 90% or greater. Cardiac: SR per monitor. BP stable- previously hypertensive but this resolved when precedex was stopped. GI: Normal BT. No ABD tenderness on palpation. Pt is NPO at this time. Trialed sips of water by spoon, but this was followed by dry cough after swallowing. Pt did not have wet vocal quality or drop in SpO2. Plan to reassess in a few hours. : Denton catheter in place draining clear, yellow urine. Skin: Dressing to L BKA site unchanged. Site has tai, dressed with sterile gauze, ABD pad, kerlex, and radha wrap. IV fentanyl PRN for pain control. Psychosocial: Pt has labile mood, often joking one moment and then tearful and anxious the next moment. This RN changed pt's TV to sports, which he mentioned he enjoyed. Also charged pt's cellphone and assisted him to call his .
--- NOTE | 2021-05-21 20:45 | NUR ---
BEDSIDE SWALLOW EVALUATION COMPETED FOLLOWING GUIDELINES, PT PASSED WITHOUT ISSUES. GIVEN CLEAR LIQUID DIET. WILL CONTINUE TO MONITOR AND ADDRESS NEEDS THEY OCCUR.
[2021-05-22 03:55] LABS: BASOPHILS ABSOLUTE AUTO 0.09 K/mm3 (0.00-0.23); BASOPHILS PERCENT AUTO 1 % (0-2); EOSINOPHILS PERCENT AUTO 0 % (0-6); Hematocrit 38.7 % (37.0-53.0); Hemoglobin 12.3 g/dL (13.5-17.5); IMMATURE GRAN ABSOLUTE AUTO 1.24 K/mm3 (0.00-0.10); IMMATURE GRAN PERCENT AUTO 8 % (0-1); LYMPHOCYTES ABSOLUTE AUTO 0.55 K/mm3 (0.84-5.20); LYMPHOCYTES PERCENT AUTO 4 % (21-46); MONOCYTES ABSOLUTE AUTO 0.96 K/mm3 (0.16-1.47); MONOCYTES PERCENT AUTO 6 % (4-13); Mean Corpuscular HGB 26.7 pg (26.0-34.0); Mean Corpuscular HGB Conc 31.8 g/dL (31.5-36.5); Mean Corpuscular Volume 84 fL (80-100); Mean Platelet Volume 10.2 fL (9.1-12.4); NEUTROPHILS ABSOLUTE AUTO 13.09 K/mm3 (1.96-9.15); NEUTROPHILS PERCENT AUTO 82 % (41-73); Platelet Count 209 K/mm3 (150-400); RDW Coefficient Variation 15.8 % (11.7-14.2); RDW Standard Deviation 48.5 fL (35.1-46.3); Red Blood Cell Count 4.61 M/mm3 (4.30-5.90); White Blood Cell Count 15.93 K/mm3 (4.00-11.30)
[2021-05-22 04:14] LABS: Alanine Aminotransfer (ALT/SGP 34 U/L (12-78); Albumin, Blood 2.4 g/dL (3.4-5.0); Albumin/Globulin Ratio 0.5 (0.8-1.8); Alk Phos 141 U/L (50-136); Anion Gap 6 mmol/L (6-16); Aspartate Aminotrans (AST/SGOT 15 U/L (12-37); Bilirubin, Total 0.2 mg/dL (0.1-1.0); Blood Urea Nitrogen 30 mg/dL (8-24); Bun/Creatinine Ratio 29.7 (12.0-20.0); CO2, Blood 24 mmol/L (21-32); Calcium, Blood 8.6 mg/dL (8.5-10.1); Chloride, Blood 110 mmol/L (98-108); Creatinine, Blood 1.01 mg/dL (0.60-1.20); Globulin, Blood 4.5 g/dL (2.2-4.0); Glomerular Filtration Rate >60 (60-); Glucose, Blood 300 mg/dL (70-99); Potassium, Blood 3.9 mmol/L (3.5-5.5); Sodium, Blood 140 mmol/L (136-145); Total Protein, Blood 6.9 g/dL (6.4-8.2)
[2021-05-22 04:18] LABS: BAND PERCENT MAN 3 % (0-8); BASOPHILS PERCENT MAN 0 % (0-2); EOSINOPHILS PERCENT MAN 0 % (0-6); LYMPHOCYTES ABSOLUTE MAN 0.63 K/mm3 (0.84-5.20); LYMPHOCYTES PERCENT MAN 4 % (21-46); METAMYELOCYTE ABSOLUTE MAN 0.15 K/mm3 (0.00-0.00); METAMYELOCYTE PERCENT MAN 1 % (0-0); MONOCYTES ABSOLUTE MAN 0.63 K/mm3 (0.16-1.47); MONOCYTES PERCENT MAN 4 % (4-13); NEUTROPHILS ABSOLUTE MAN 14.49 K/mm3 (1.96-9.15); SEG NEUTROPHILS PERCENT MAN 88 % (41-73); TOTAL CELLS COUNTED 100
--- NOTE | 2021-05-22 05:52 | NUR ---
LYING IN SEMI FOWLERS WITH EYES OPEN, HAS RESTED OFF AND ON THIS SHIFT BUT STAES THAT HE HASN'T SLEPT AT ALL. CONTINUES TO BE CONFUSED INTERMITTENTLY, NURSING ABLE TO REORIENT. HAS BEEN CALM AND COOPERATIVE AFTER STARTING SHIFT BEING MANIPULATIVE AND DEMANDING. NURSING CONTINUES TO REITERATE NEED TO KEEP BEDSIDE MONITORING IN PLACE, PT VOICES UNDERSTANDING. BEDSIDE SWALLOW EVAL PASSED AROUND 2044 THIS SHIFT. PT GIVEN WATER AND JELLO AND HAS BEEN ABLE TO CONSUME WITHOUT ISSUES. BGL TRENDING DOWN, COVERAGE GIVEN PER HIGH SS ORDERED BY . GARLAND REEES ELEVATED ON PILLOW AFTER PT SAT UP ON EDGE OF BED FOR A COUPLE OF HOURS FOR HIS COMFORT, NO EDEMA NOTED. MEDICATED FOR PAIN PRN. DENEIS FURTHER NEEDS OR WANTS AT THIS TIME. SAFETY MEASURES IN PLACE. WILL CONTINUE TO MONITOR AND ADDRESS NEEDS THEY ARISE. WILL GIVE HAND OFF TO ONCOMING SHIFT USING SBAR DURING BEDSIDE REPORT.
--- NOTE | 2021-05-22 13:52 | NUR ---
0715: SAFE HANDOFF REC'D, ASSUMED CARE OF PT. PT IS AWAKE, RESTING IN BED, HE IS S/P LT BKA AND HAD A SUBSEQUENT ALLERGIC REACTION TO AN UNKNOWN MEDICATION (POSSIBLY TO AN OPIOD) AND REQUIRED INTUBATION. PT WAS EXTUBATED YESTERDAY AND HAS BEEN TOLERATING CLEAR LIQUIDS OVERNIGHT. PT HAS BEEN RECEIVING FENTANYL FOR PAIN AND IS CURRENTLY COMFORTABLE. 0900:PT MEDICATED W/50 MCG OF FENTANYL FOR LLE SURGICAL DISCOMFORT. 1115: PT REMEDICATED W/50 MCG OF FENTANLY FOR LLE SURGICAL PAIN. [id number]: PT MAPPING INTERMITTENTLY, HAS A BED AVAILABLE ON SURGICAL UNIT. CLARIFIED WITH DR BROTHERS REGARDING ORAL ANALGESICS AND SHE STATES THAT PT SHOULD AVOID ADDING OPIOIDS AT THIS TIME AND WILL STICK WITH FENTANYL. ALSO NOTIFIED HER OF PT'S BP BEING ELEVATED THIS AFTERNOON AND SHE STATES THAT SHE WILL REVIEW HIS MEDICATIONS AND ORDER HYDRALAZINE.
--- NOTE | 2021-05-22 14:10 | NUR ---
PT ADMITTED FOR RESPIRATORY FAILURE WITH COVID 19 AND IS ON BIPAP AT 30% FIO2 AND TOLERATING THAT WELL, HE REMAINS ON A PRECEDEX GTT AT 0.8 MCG/KG/HR FOR AGITATION, HE HAS BEEN RESTING COMFORTABLY, FOLLOWS COMMANDS, SHAKES HIS HEAD "NO" WHEN ASKED IF HAVING PAIN. PT INCONTINENT OF SOFT STOOL, SKIN TO HIS COCCYX IS RED AND OPEN, MEPILEX DRESSING APPLIED AND PT ON A Q2 HOUR TURN SCHEDULE. PT SWITTCHED FROM FULL FACE BIPAP MASK TO REGULAR MASK THE FULL FACE MASK WAS NOTED TO BE CAUSING REDNESS AND POTENTIAL PRESURE TO HIS CHEEK. HE DOES HOWEVER HAVE A SCABBED AREA ON BRIDGE OF NOSE THAT MEEDS TO BE PROTECTED.
--- NOTE | 2021-05-22 17:39 | NUR ---
PATIENT ARRIVED TO UNIT MADE COMFORTABLE IN BED A ABOUT 1500 TODAY FROM PCU. PATIENT TRANFERED TO BED FROM WHEELCHAIR WITH ASSIST X 1 WITH WALKER AND GAIT BELT. TOLERATED WELL, MODERATE ASSIST NEEDED. ROMAN CATH IN PLACE, DRAINING CLEAR YELLOW URINE, NO SIGNS OR SYMPTOMS ACUTE DISTRESS NOTED, CALL LIGHT AND WATER IN EASY REACH. ABLE TO MAKE NEEDS AND WANTS KNOWN. ALERT AND ORIENTED X 4. ALL IV'S ARE PATENT AND FLUSHED. WILL MONITOR.
[2021-05-23 04:34] LABS: BASOPHILS ABSOLUTE AUTO 0.06 K/mm3 (0.00-0.23); BASOPHILS PERCENT AUTO 1 % (0-2); EOSINOPHILS ABSOLUTE AUTO 0.01 K/mm3 (0.00-0.68); EOSINOPHILS PERCENT AUTO 0 % (0-6); Hematocrit 34.1 % (37.0-53.0); Hemoglobin 10.9 g/dL (13.5-17.5); IMMATURE GRAN ABSOLUTE AUTO 0.75 K/mm3 (0.00-0.10); IMMATURE GRAN PERCENT AUTO 8 % (0-1); LYMPHOCYTES ABSOLUTE AUTO 0.82 K/mm3 (0.84-5.20); LYMPHOCYTES PERCENT AUTO 8 % (21-46); MONOCYTES ABSOLUTE AUTO 0.43 K/mm3 (0.16-1.47); MONOCYTES PERCENT AUTO 4 % (4-13); Mean Corpuscular HGB 26.5 pg (26.0-34.0); Mean Corpuscular Volume 83 fL (80-100); Mean Platelet Volume 10.7 fL (9.1-12.4); NEUTROPHILS ABSOLUTE AUTO 7.79 K/mm3 (1.96-9.15); NEUTROPHILS PERCENT AUTO 79 % (41-73); Platelet Count 206 K/mm3 (150-400); RDW Coefficient Variation 15.3 % (11.7-14.2); RDW Standard Deviation 46.5 fL (35.1-46.3); Red Blood Cell Count 4.12 M/mm3 (4.30-5.90); White Blood Cell Count 9.86 K/mm3 (4.00-11.30)
[2021-05-23 04:53] LABS: Alanine Aminotransfer (ALT/SGP 23 U/L (12-78); Albumin/Globulin Ratio 0.5 (0.8-1.8); Alk Phos 93 U/L (50-136); Anion Gap 5 mmol/L (6-16); Aspartate Aminotrans (AST/SGOT 16 U/L (12-37); Bilirubin, Total 0.1 mg/dL (0.1-1.0); Blood Urea Nitrogen 24 mg/dL (8-24); Bun/Creatinine Ratio 27.8 (12.0-20.0); CO2, Blood 25 mmol/L (21-32); Calcium, Blood 8.1 mg/dL (8.5-10.1); Chloride, Blood 109 mmol/L (98-108); Creatinine, Blood 0.86 mg/dL (0.60-1.20); Globulin, Blood 3.8 g/dL (2.2-4.0); Glomerular Filtration Rate >60 (60-); Glucose, Blood 279 mg/dL (70-99); Potassium, Blood 4.2 mmol/L (3.5-5.5); Sodium, Blood 139 mmol/L (136-145); Total Protein, Blood 5.8 g/dL (6.4-8.2)
[2021-05-23 05:35] LABS: BAND PERCENT MAN 2 % (0-8); BASOPHILS PERCENT MAN 0 % (0-2); EOSINOPHILS PERCENT MAN 0 % (0-6); LYMPHOCYTES ABSOLUTE MAN 1.08 K/mm3 (0.84-5.20); LYMPHOCYTES PERCENT MAN 11 % (21-46); METAMYELOCYTE ABSOLUTE MAN 0.09 K/mm3 (0.00-0.00); METAMYELOCYTE PERCENT MAN 1 % (0-0); MONOCYTES ABSOLUTE MAN 0.29 K/mm3 (0.16-1.47); MONOCYTES PERCENT MAN 3 % (4-13); NEUTROPHILS ABSOLUTE MAN 8.38 K/mm3 (1.96-9.15); SEG NEUTROPHILS PERCENT MAN 83 % (41-73); TOTAL CELLS COUNTED 100
--- NOTE | 2021-05-23 06:15 | NUR ---
POD 4 S/P L BKA. PT VSS T/O NIGHT. HEART RATE DID DROP DOWN TO 44 WHILE SLEEPING; PT AWOKE EASILY, WAS ASYMPTOMATIC. DRESSING TO L BKA WNL. CIRC CHECKS WNL, PT DENIED CHANGES IN SENSATION. PT MED FOR PAIN X1 W/50 MCG FENTANYL. PT REP LESS PAINFUL THIS AM, RATES PAIN 3/10; DECLINED NEED FOR PAIN MEDS. PT VOIDING URINE W/O DIFFICULTY. PT ASSISTING W/REPOSITIONING IN BED, NICKI WELL. PT REP HAVING SLEPT WELL, IS EAGER TO D/C HOME.
--- NOTE | 2021-05-23 11:52 | NUR ---
Update 05/23/21: Per chart review this am with Dr. Flynn, pt. would like to return home at time of discharge. Pt. lives with and two adult daughters that he states will provide support. PT recommendation for home with water technician caregiver assistance. Will contact patient's this afternoon to ensure that she feels they can his needs and also provide update. Pt. will need PT HH or outpatient PT. Receiving prosthesis soon. Plane to discuss HH services vs outpatient PT with patient and his Afshan. If agreeable, securing HH services prior to discharge will likely be beneficial for pt. HH will provide additional support. HH PT will also ensure that the patient's home is set up well for his safety and allows for him to adjust well.
--- NOTE | 2021-05-23 15:57 | NUR ---
PATIENT HAD A GOOD DAY TODAY. HE WORKED WITH THERAPY AND DID WELL. NO SIGNS OR SYMPTOMS ACUTE DISTERSS NOTED. CALL LIGHT AND WATER IN EASY REACH. ABLE TO MAKE NEEDS AND WANTS KNOWN. ALERT AND ORIENTED X 4. APPETITE IT GOOD. BLOOD SUGARS ARE ELEVATED WITH SOLUMEDROL ON BOARD. WILL MONITOR.
--- NOTE | 2021-05-23 17:58 | NUR ---
Spoke with patient's Afshan this evening. Provided update regarding patient's condition and discussed discharge planning. Pt. has a strong family support system. No caregiver assistance needed per Afshan and pt. Discussed HH services. Afshan stated that pt. would not want someone in his home. They are requesting outpatient PT. Anticipate needs at time of discharge to include: wheelchair, shower chair, PT order, hospital F/U with pcp stalin 5-7 days, and ortho F/U appt. At time of discharge patient's Afshan will be providing transportation. She has requested that the wheelchair is delivered to hospital.
[2021-05-24 04:36] LABS: Hematocrit 37.5 % (37.0-53.0); Hemoglobin 12.1 g/dL (13.5-17.5); Mean Corpuscular HGB 26.6 pg (26.0-34.0); Mean Corpuscular HGB Conc 32.3 g/dL (31.5-36.5); Mean Corpuscular Volume 82 fL (80-100); Mean Platelet Volume 9.7 fL (9.1-12.4); Platelet Count 251 K/mm3 (150-400); RDW Coefficient Variation 14.9 % (11.7-14.2); RDW Standard Deviation 45.2 fL (35.1-46.3); Red Blood Cell Count 4.55 M/mm3 (4.30-5.90); White Blood Cell Count 9.49 K/mm3 (4.00-11.30)
[2021-05-24 05:20] LABS: BASOPHILS PERCENT MAN 0 % (0-2); EOSINOPHILS PERCENT MAN 0 % (0-6); LYMPHOCYTES ABSOLUTE MAN 0.94 K/mm3 (0.84-5.20); LYMPHOCYTES PERCENT MAN 10 % (21-46); METAMYELOCYTE ABSOLUTE MAN 0.18 K/mm3 (0.00-0.00); METAMYELOCYTE PERCENT MAN 2 % (0-0); MONOCYTES ABSOLUTE MAN 0.37 K/mm3 (0.16-1.47); MONOCYTES PERCENT MAN 4 % (4-13); MYELOCYTE ABSOLUTE MAN 0.18 K/mm3 (0.00-0.00); MYELOCYTE PERCENT MAN 2 % (0-0); NEUTROPHILS ABSOLUTE MAN 7.78 K/mm3 (1.96-9.15); SEG NEUTROPHILS PERCENT MAN 82 % (41-73); TOTAL CELLS COUNTED 100
[2021-05-24 05:22] LABS: Alanine Aminotransfer (ALT/SGP 21 U/L (12-78); Albumin, Blood 2.1 g/dL (3.4-5.0); Albumin/Globulin Ratio 0.6 (0.8-1.8); Alk Phos 88 U/L (50-136); Anion Gap 6 mmol/L (6-16); Aspartate Aminotrans (AST/SGOT 9 U/L (12-37); Bilirubin, Total 0.2 mg/dL (0.1-1.0); Blood Urea Nitrogen 20 mg/dL (8-24); Bun/Creatinine Ratio 21.1 (12.0-20.0); CO2, Blood 27 mmol/L (21-32); Chloride, Blood 104 mmol/L (98-108); Creatinine, Blood 0.95 mg/dL (0.60-1.20); Globulin, Blood 3.7 g/dL (2.2-4.0); Glomerular Filtration Rate >60 (60-); Glucose, Blood 298 mg/dL (70-99); Potassium, Blood 3.9 mmol/L (3.5-5.5); Sodium, Blood 137 mmol/L (136-145); Total Protein, Blood 5.8 g/dL (6.4-8.2)
--- NOTE | 2021-05-24 06:30 | NUR ---
PT IS A/OX3. ABLE TO MAKE HIS NEEDS KNOWN. TELE: SR. CBS, HAS I/S AT BEDSIDE. HAS TWO PIV'S: LAC AND LFA, BOTH PIV'S PATENT. HS BS WAS 391. BT'S POS X4. DENIED ANY N/V. DRSG TO LT STUMP (LBKA) IS CDI. PRN TYLENOL MANAGED PAIN TO LT STUMP WELL. AT 0140 STAFF HEARD THUMP COMING FROM PT'S ROOM. UPON ENTERING ROOM, STAFF FOUND RSD ON THE FLOOR. HE WAS LYING ON HIS RT SIDE, BETWEEN HIS BED AND WINDOW. SUSTAINED ABRASIN TO RT KNEE. ABRASION ENERGY ECONOMIST. NO OTHER INJURIES NOTED. WHEN ASKED HOW HE FELL, PT SAYS THAT HE WAS SITTING AT THE EDGE OF HIS BED WHEN HE REALIZED HIS URINAL WAS ON THE BEDSIDE TABLE ON THE OTHER SIDE OF THE BED. HE LEANED OVER TO GRAB THE URINAL WHEN HE SLIDE OUT OF BED, LANDING ON THE FLOOR. DR ARAIZA NOTIFIED. TRANSFORMATION ARCHITECT NOTIFIED.
[2021-05-24] MEDS ORDERED: LISI5 PO (12:09)
--- NOTE | 2021-05-24 13:19 | NUR ---
Update 05/24/21: Per chart review with Dr. Flynn, pt. appropriate for discharge today. Wheelchair ordered through [facility] and will be delivered around 1:30 pm to patient's room here at [facility]. Shower chair also ordered through [facility] and will be delivered this afternoon to patient's home. Patient and declining HH services at this time despite recommendation. I have provided them with my contact information as well as the clinic number to call if they change their mind once returning home. Pt. requesting outpatient PT. We will ensure that pt. is scheduled. Patient's Afshan requesting assistance with a wheelchair ramp. Contacted the [employer] to request that they assist with the cost and construction of a wheelchair ramp for patient. They will be contacting patient's Afshan to discuss further. Pt. has a walker at home. Denies any additional needs. Scheduled for hospital F/U with PCP BEATRICE Alston on 05/30/21 at 0930. Patient's will be transporting patient home. She is on her way at this time.
--- NOTE | 2021-05-24 13:19 | NUR ---
DISCHARGE INSTRUCTIONS GIVEN TO PATIENT AT THIS TIME. PATIENT VERBALIZED UNDERSTANDING. WHEELCHIAR BEING DELIVERED HERE. SHOWER CHAIR BEING DELIVERED TO PATIENTS HOME. ZEFERINO HAS WAKLER AT HOME AND REFUSED A TWO WHEEL WALKER THAT WAS SUGGESTED BY THERAPY. IV'S REMOVED. DRESSING TO LEFT STUMP CHANGED, BRANDI NOTED, INCISION INTACT, CLEAN AND DRY. PATIENTS IS DOWNSTAIRS WAITING TO TAKE HIM HOME. NO SIGNS OR SYMPTOMS ACUTE DISTRESS NOTED. WILL MONITOR.
== END 2021-05-24 13:59 | disposition home or self-care (01) | DRG 853 ==
LOC: ER 10:13 → SURS 12:21 → MEDS 12:21 → PCU 12:21 → MEDS 14:42 → PCU 05-19 22:37 → SURS 05-22 14:36
PROVIDERS: Emergency Medicine; Emergency Medicine Emergency Medical Services; Family Medicine; Hospitalist; Internal Medicine Critical Care Medicine; Pharmacist; ADMIT Internal Medicine
PROC: 0Y6J0Z1 Detachment at Left Lower Leg, High, Open Approach (ICD-10-PCS; 2021-05-19)
PROC: 0BH18EZ Insertion of Endotracheal Airway into Trachea, Via Natural or Artificial Opening Endoscopic (ICD-10-PCS; principal; 2021-05-20)
PROC: 5A1935Z Respiratory Ventilation, Less than 24 Consecutive Hours (ICD-10-PCS; 2021-05-20)
DX: A41.01 Sepsis due to Methicillin susceptible Staphylococcus aureus (principal); U07.1 COVID-19; J96.01 Acute respiratory failure with hypoxia; L02.612 Cutaneous abscess of left foot; L03.116 Cellulitis of left lower limb; E87.1 Hypo-osmolality and hyponatremia; T88.6XXA Anaphylactic reaction due to adverse effect of correct drug or medicament properly administered, initial encounter; E11.628 Type 2 diabetes mellitus with other skin complications; E66.01 Morbid (severe) obesity due to excess calories; K21.9 Gastro-esophageal reflux disease without esophagitis; G43.909 Migraine, unspecified, not intractable, without status migrainosus; E11.65 Type 2 diabetes mellitus with hyperglycemia; E11.610 Type 2 diabetes mellitus with diabetic neuropathic arthropathy; E11.42 Type 2 diabetes mellitus with diabetic polyneuropathy; T78.3XXA Angioneurotic edema, initial encounter; K59.00 Constipation, unspecified; D64.9 Anemia, unspecified; T40.2X5A Adverse effect of other opioids, initial encounter; Z98.84 Bariatric surgery status; Z98.890 Other specified postprocedural states; Z88.5 Allergy status to narcotic agent; Z89.422 Acquired absence of other left toe(s); Z79.84 Long term (current) use of oral hypoglycemic drugs; Z79.899 Other long term (current) drug therapy
CPT/HCPCS: 31500; 36415; 36600; 71045; 73590; 73620; 73700; 80053; 80202; 81001; 82803; 82947; 83036; 83605; 85025; 87040; 87077; 87147; 87186; 88307; 93005; 93010; 94002; 94003; 94762; 96365; 96366; 96375; 97110; 97162; 97167; 97530; 97535; 99285-25; A9270; J0330; J1100; J1170; J1200; J1644; J1815; J2060; J2250; J2270; J2405; J2543; J2700; J2704; J2920; J2930; J3010; J3370; J7030; J7050; J7120; U0004

== ENCOUNTER → 2021-10-13 | Outpatient (CLI) | payer OTHER ==
[~2021-10-13] MED LIST changes: +AMITRIPTYLINE H25 MG PO; +FARXIGA5 MG PO; +LEVOCETIRIZINE D5 MG PO; +LISI5 PO; +SEROQUEL50 MG PO
[2021-10-13 10:37] LABS: BASOPHILS ABSOLUTE AUTO 0.03 K/mm3 (0.00-0.23); BASOPHILS PERCENT AUTO 0 % (0-2); EOSINOPHILS ABSOLUTE AUTO 0.29 K/mm3 (0.00-0.68); EOSINOPHILS PERCENT AUTO 4 % (0-6); Hematocrit 38.8 % (37.0-53.0); Hemoglobin 12.9 g/dL (13.5-17.5); IMMATURE GRAN ABSOLUTE AUTO 0.05 K/mm3 (0.00-0.10); IMMATURE GRAN PERCENT AUTO 1 % (0-1); LYMPHOCYTES ABSOLUTE AUTO 1.14 K/mm3 (0.84-5.20); LYMPHOCYTES PERCENT AUTO 15 % (21-46); MONOCYTES ABSOLUTE AUTO 0.97 K/mm3 (0.16-1.47); MONOCYTES PERCENT AUTO 13 % (4-13); Mean Corpuscular HGB 27.9 pg (26.0-34.0); Mean Corpuscular HGB Conc 33.2 g/dL (31.5-36.5); Mean Corpuscular Volume 84 fL (80-100); Mean Platelet Volume 9.4 fL (9.1-12.4); NEUTROPHILS ABSOLUTE AUTO 5.02 K/mm3 (1.96-9.15); NEUTROPHILS PERCENT AUTO 67 % (41-73); Platelet Count 166 K/mm3 (150-400); RDW Coefficient Variation 14.5 % (11.7-14.2); RDW Standard Deviation 43.3 fL (35.1-46.3); Red Blood Cell Count 4.63 M/mm3 (4.30-5.90)
[2021-10-13 11:13] LABS: Albumin, Blood 3.3 g/dL (3.4-5.0); Albumin/Globulin Ratio 1.1 (0.8-1.8); Bilirubin, Total 0.4 mg/dL (0.1-1.0); Bun/Creatinine Ratio 12.2 (12.0-20.0); Calcium, Blood 8.7 mg/dL (8.5-10.1); Creatinine, Blood 2.21 mg/dL (0.60-1.20); Globulin, Blood 2.9 g/dL (2.2-4.0); Potassium, Blood 5.3 mmol/L (3.5-5.5); Total Protein, Blood 6.2 g/dL (6.4-8.2)
== END | disposition home or self-care (01) ==
LOC: LAB 10:30 → LAB SHORT 10:30
PROVIDERS: Physician Assistant
DX: R10.9 Unspecified abdominal pain (principal)
CPT/HCPCS: 80053; 83690; 85025

== ENCOUNTER → 2021-10-14 | Outpatient (CLI) | payer OTHER ==
[2021-10-14 10:18] LABS: BASOPHILS ABSOLUTE AUTO 0.03 K/mm3 (0.00-0.23); BASOPHILS PERCENT AUTO 1 % (0-2); EOSINOPHILS ABSOLUTE AUTO 0.32 K/mm3 (0.00-0.68); EOSINOPHILS PERCENT AUTO 5 % (0-6); Hematocrit 38.9 % (37.0-53.0); Hemoglobin 12.8 g/dL (13.5-17.5); IMMATURE GRAN ABSOLUTE AUTO 0.06 K/mm3 (0.00-0.10); IMMATURE GRAN PERCENT AUTO 1 % (0-1); LYMPHOCYTES ABSOLUTE AUTO 1.29 K/mm3 (0.84-5.20); LYMPHOCYTES PERCENT AUTO 20 % (21-46); MONOCYTES ABSOLUTE AUTO 0.86 K/mm3 (0.16-1.47); MONOCYTES PERCENT AUTO 13 % (4-13); Mean Corpuscular HGB 27.6 pg (26.0-34.0); Mean Corpuscular HGB Conc 32.9 g/dL (31.5-36.5); Mean Corpuscular Volume 84 fL (80-100); Mean Platelet Volume 9.5 fL (9.1-12.4); NEUTROPHILS ABSOLUTE AUTO 3.85 K/mm3 (1.96-9.15); NEUTROPHILS PERCENT AUTO 60 % (41-73); Platelet Count 160 K/mm3 (150-400); RDW Coefficient Variation 14.6 % (11.7-14.2); RDW Standard Deviation 43.9 fL (35.1-46.3); Red Blood Cell Count 4.63 M/mm3 (4.30-5.90); White Blood Cell Count 6.41 K/mm3 (4.00-11.30)
[2021-10-14 10:26] LABS: Albumin, Blood 3.3 g/dL (3.4-5.0); Albumin/Globulin Ratio 1.1 (0.8-1.8); Bilirubin, Total 0.3 mg/dL (0.1-1.0); Bun/Creatinine Ratio 14.1 (12.0-20.0); Calcium, Blood 8.1 mg/dL (8.5-10.1); Creatinine, Blood 1.7 mg/dL (0.60-1.20); Globulin, Blood 2.9 g/dL (2.2-4.0); Potassium, Blood 5.7 mmol/L (3.5-5.5); Total Protein, Blood 6.2 g/dL (6.4-8.2)
[2021-10-14 12:33] LABS: Percent Saturation 38.1 % (20.0-50.0)
== END ==
LOC: LAB SHORT 10:09
PROVIDERS: Physician Assistant
DX: D50.9 Iron deficiency anemia, unspecified (principal); N17.9 Acute kidney failure, unspecified
CPT/HCPCS: 80053; 82728; 83540; 83550; 85025

== ENCOUNTER 2021-10-28 00:42 | Day surgery (SDC) | payer OTHER | END 2021-10-28 23:52 | disposition home or self-care (01) | LOC: WOUND 00:42 | DX: E11.621 Type 2 diabetes mellitus with foot ulcer (principal); L97.515 Non-pressure chronic ulcer of other part of right foot with muscle involvement without evidence of necrosis; E11.42 Type 2 diabetes mellitus with diabetic polyneuropathy; I87.2 Venous insufficiency (chronic) (peripheral); E11.51 Type 2 diabetes mellitus with diabetic peripheral angiopathy without gangrene; E11.21 Type 2 diabetes mellitus with diabetic nephropathy; Z89.512 Acquired absence of left leg below knee | CPT/HCPCS: A9270; G0463 ==

== ENCOUNTER 2021-11-04 00:44 | Day surgery (SDC) | payer OTHER | END 2021-11-04 22:47 | disposition home or self-care (01) | LOC: WOUND 00:44 | DX: E11.621 Type 2 diabetes mellitus with foot ulcer (principal); L97.512 Non-pressure chronic ulcer of other part of right foot with fat layer exposed; L97.515 Non-pressure chronic ulcer of other part of right foot with muscle involvement without evidence of necrosis; E11.51 Type 2 diabetes mellitus with diabetic peripheral angiopathy without gangrene; I87.2 Venous insufficiency (chronic) (peripheral); I73.9 Peripheral vascular disease, unspecified; E11.21 Type 2 diabetes mellitus with diabetic nephropathy; E11.42 Type 2 diabetes mellitus with diabetic polyneuropathy; Z89.512 Acquired absence of left leg below knee | CPT/HCPCS: A9270; G0463 ==

== ENCOUNTER 2021-11-11 00:27 | Day surgery (SDC) | payer OTHER | END 2021-11-11 23:47 | disposition home or self-care (01) | LOC: WOUND 00:27 | DX: E11.621 Type 2 diabetes mellitus with foot ulcer (principal); L97.512 Non-pressure chronic ulcer of other part of right foot with fat layer exposed; E11.42 Type 2 diabetes mellitus with diabetic polyneuropathy; I87.2 Venous insufficiency (chronic) (peripheral); E11.51 Type 2 diabetes mellitus with diabetic peripheral angiopathy without gangrene; E11.21 Type 2 diabetes mellitus with diabetic nephropathy; E11.610 Type 2 diabetes mellitus with diabetic neuropathic arthropathy; Z89.512 Acquired absence of left leg below knee | CPT/HCPCS: A9270; G0463 ==

== ENCOUNTER 2021-11-18 02:26 | Day surgery (SDC) | payer OTHER ==
[2022-05-31] MEDS ORDERED: DICY20 PO (12:28)
[2022-05-31] MEDS ORDERED: MIRALAX17 GM PO (12:28)
== END 2021-11-18 23:15 | disposition home or self-care (01) ==
LOC: WOUND 02:26
DX: E11.621 Type 2 diabetes mellitus with foot ulcer (principal); L97.515 Non-pressure chronic ulcer of other part of right foot with muscle involvement without evidence of necrosis; L97.512 Non-pressure chronic ulcer of other part of right foot with fat layer exposed; I87.2 Venous insufficiency (chronic) (peripheral); E11.42 Type 2 diabetes mellitus with diabetic polyneuropathy; E11.51 Type 2 diabetes mellitus with diabetic peripheral angiopathy without gangrene; E11.21 Type 2 diabetes mellitus with diabetic nephropathy; L03.031 Cellulitis of right toe; Z89.512 Acquired absence of left leg below knee
CPT/HCPCS: A9270; G0463

== ENCOUNTER 2021-11-25 02:51 | Day surgery (SDC) | payer OTHER | END 2021-11-25 22:56 | disposition home or self-care (01) | LOC: WOUND 02:51 | DX: E11.621 Type 2 diabetes mellitus with foot ulcer (principal); L97.515 Non-pressure chronic ulcer of other part of right foot with muscle involvement without evidence of necrosis; E11.42 Type 2 diabetes mellitus with diabetic polyneuropathy; I87.2 Venous insufficiency (chronic) (peripheral); E11.21 Type 2 diabetes mellitus with diabetic nephropathy; L03.031 Cellulitis of right toe; Z89.512 Acquired absence of left leg below knee | CPT/HCPCS: G0463 ==

== ENCOUNTER 2021-12-02 01:18 | Day surgery (SDC) | payer OTHER | END 2021-12-02 23:02 | disposition home or self-care (01) | LOC: WOUND 01:18 | DX: E11.621 Type 2 diabetes mellitus with foot ulcer (principal); L97.515 Non-pressure chronic ulcer of other part of right foot with muscle involvement without evidence of necrosis; L97.512 Non-pressure chronic ulcer of other part of right foot with fat layer exposed; E11.51 Type 2 diabetes mellitus with diabetic peripheral angiopathy without gangrene; E11.42 Type 2 diabetes mellitus with diabetic polyneuropathy; E11.21 Type 2 diabetes mellitus with diabetic nephropathy; I87.2 Venous insufficiency (chronic) (peripheral); L03.031 Cellulitis of right toe; Z89.512 Acquired absence of left leg below knee | CPT/HCPCS: A9270; G0463 ==

== ENCOUNTER 2021-12-20 02:04 | Day surgery (SDC) | payer OTHER | END 2021-12-20 23:27 | disposition home or self-care (01) | LOC: WOUND 02:04 | DX: E11.621 Type 2 diabetes mellitus with foot ulcer (principal); L97.512 Non-pressure chronic ulcer of other part of right foot with fat layer exposed; E11.42 Type 2 diabetes mellitus with diabetic polyneuropathy; Z89.512 Acquired absence of left leg below knee; I87.2 Venous insufficiency (chronic) (peripheral); E11.21 Type 2 diabetes mellitus with diabetic nephropathy; L03.031 Cellulitis of right toe | CPT/HCPCS: A9270; G0463 ==

== ENCOUNTER 2021-12-27 01:02 | Day surgery (SDC) | payer OTHER | END 2021-12-27 23:45 | disposition home or self-care (01) | LOC: WOUND 01:02 | DX: E11.621 Type 2 diabetes mellitus with foot ulcer (principal); L97.515 Non-pressure chronic ulcer of other part of right foot with muscle involvement without evidence of necrosis; L97.512 Non-pressure chronic ulcer of other part of right foot with fat layer exposed; E11.42 Type 2 diabetes mellitus with diabetic polyneuropathy; I87.2 Venous insufficiency (chronic) (peripheral); L03.031 Cellulitis of right toe; E11.21 Type 2 diabetes mellitus with diabetic nephropathy; Z89.512 Acquired absence of left leg below knee | CPT/HCPCS: A9270; G0463 ==

== ENCOUNTER 2022-01-10 03:01 | Day surgery (SDC) | payer OTHER | END 2022-01-10 23:26 | disposition home or self-care (01) | LOC: WOUND 03:01 | DX: E11.621 Type 2 diabetes mellitus with foot ulcer (principal); L97.512 Non-pressure chronic ulcer of other part of right foot with fat layer exposed; E11.42 Type 2 diabetes mellitus with diabetic polyneuropathy; Z89.512 Acquired absence of left leg below knee; I87.2 Venous insufficiency (chronic) (peripheral); E11.21 Type 2 diabetes mellitus with diabetic nephropathy; L03.031 Cellulitis of right toe; S91.104D Unspecified open wound of right lesser toe(s) without damage to nail, subsequent encounter; X58.XXXD Exposure to other specified factors, subsequent encounter | CPT/HCPCS: A9270; G0463 ==

== ENCOUNTER 2022-01-24 08:00 | Day surgery (SDC) | payer OTHER | END 2022-01-24 23:59 | disposition home or self-care (01) | LOC: WOUND | DX: E11.621 Type 2 diabetes mellitus with foot ulcer (principal); L97.515 Non-pressure chronic ulcer of other part of right foot with muscle involvement without evidence of necrosis; E11.42 Type 2 diabetes mellitus with diabetic polyneuropathy; I87.2 Venous insufficiency (chronic) (peripheral); E11.21 Type 2 diabetes mellitus with diabetic nephropathy; L03.031 Cellulitis of right toe | CPT/HCPCS: G0463 ==

== ENCOUNTER 2022-02-07 01:05 | Day surgery (SDC) | payer OTHER | END 2022-02-07 23:20 | disposition home or self-care (01) | LOC: WOUND 01:05 | DX: S91.104D Unspecified open wound of right lesser toe(s) without damage to nail, subsequent encounter (principal); E11.42 Type 2 diabetes mellitus with diabetic polyneuropathy; E11.21 Type 2 diabetes mellitus with diabetic nephropathy; L03.031 Cellulitis of right toe; I87.2 Venous insufficiency (chronic) (peripheral); Z89.512 Acquired absence of left leg below knee | CPT/HCPCS: G0463 ==

== ENCOUNTER 2022-02-21 03:33 | Day surgery (SDC) | payer OTHER | END 2022-02-21 22:36 | disposition home or self-care (01) | LOC: WOUND 03:33 | DX: E11.621 Type 2 diabetes mellitus with foot ulcer (principal); L97.519 Non-pressure chronic ulcer of other part of right foot with unspecified severity; E11.42 Type 2 diabetes mellitus with diabetic polyneuropathy; Z89.512 Acquired absence of left leg below knee; I87.2 Venous insufficiency (chronic) (peripheral); E11.21 Type 2 diabetes mellitus with diabetic nephropathy; L03.031 Cellulitis of right toe; S91.104D Unspecified open wound of right lesser toe(s) without damage to nail, subsequent encounter; X58.XXXD Exposure to other specified factors, subsequent encounter | CPT/HCPCS: G0463 ==

== ENCOUNTER → 2022-06-07 | Outpatient (CLI) | payer OTHER ==
[~2022-06-07] MED LIST changes: +DICY20 PO; +MIRALAX17 GM PO
== END | disposition home or self-care (01) ==
LOC: LAB SHORT 10:00 → LAB 10:00
PROVIDERS: Physician Assistant
DX: K52.9 Noninfective gastroenteritis and colitis, unspecified (principal)
CPT/HCPCS: 82653; 83993

== ENCOUNTER 2022-08-08 07:28 | Day surgery (SDC) | payer OTHER ==
[~2022-08-08] VITALS: Ht 182.9 cm; Wt 92.6 kg
[2022-08-08] MEDS ORDERED: Isosorbide Mono30 MG (08:11)
[2022-08-08] MEDS ORDERED: Cyclobenzaprine5 MG (08:11)
[2022-08-08] MEDS ORDERED: CREON DR 12,001 EACH (08:11)
[2022-08-08] MEDS ORDERED: Diclofenac Pota50 MG (08:12)
== END 2022-08-08 10:27 | disposition home or self-care (01) ==
LOC: ORSCSDS 07:28
PROVIDERS: Student in an Organized Health Care Education/Training Program
PROC: 0DBL8ZX Excision of Transverse Colon, Via Natural or Artificial Opening Endoscopic, Diagnostic (ICD-10-PCS; principal; 2022-08-08 10:00)
PROC: 0DBK8ZX Excision of Ascending Colon, Via Natural or Artificial Opening Endoscopic, Diagnostic (ICD-10-PCS; principal; 2022-08-08 10:00)
PROC: 0DBE8ZX Excision of Large Intestine, Via Natural or Artificial Opening Endoscopic, Diagnostic (ICD-10-PCS; principal; 2022-08-08 10:00)
DX: R19.7 Diarrhea, unspecified (principal); Z86.010 Personal history of colon polyps; D12.2 Benign neoplasm of ascending colon; K57.30 Diverticulosis of large intestine without perforation or abscess without bleeding; K62.89 Other specified diseases of anus and rectum; I10 Essential (primary) hypertension; E78.5 Hyperlipidemia, unspecified; G47.33 Obstructive sleep apnea (adult) (pediatric); E11.40 Type 2 diabetes mellitus with diabetic neuropathy, unspecified; Z79.84 Long term (current) use of oral hypoglycemic drugs; Z79.899 Other long term (current) drug therapy
CPT/HCPCS: 82947; 88305; J2704; J7120

== ENCOUNTER → 2023-07-16 | Outpatient (CLI) | payer OTHER ==
[~2023-07-16] MED LIST changes: +CREON DR 12,001 EACH; +Cyclobenzaprine5 MG; +Diclofenac Pota50 MG; +Isosorbide Mono30 MG; +Norco 5-325 Ta1 EACH PO
== END | disposition home or self-care (01) ==
LOC: LAB 08:34 → LAB SHORT 08:34
DX: L97.509 Non-pressure chronic ulcer of other part of unspecified foot with unspecified severity (principal)
CPT/HCPCS: 87070; 87077; 87147; 87186; 87205

== ENCOUNTER 2023-08-11 11:47 | Inpatient (IN) | payer OTHER ==
[2023-08-11] VITALS (10 sets, daily range): BP systolic 62–91; BP diastolic 40–56
[~2023-08-11] VITALS: Ht 182.9 cm; Wt 75.0 kg
[~2023-08-11 11:47] MED LIST changes: +HUMALOG KW100 UNIT/1 SC; +LINZESS72 MCG PO; +MAGNESIUM OXID500 MG PO; +POTCHL20ER PO; +SEMGLEE (Y100 UNIT/2 SC; +SULTRIDS PO
[2023-08-11 12:35] LABS: Source, Urine Clean Catch
[2023-08-11 12:37] LABS: BASOPHILS ABSOLUTE AUTO 0.05 K/mm3 (0.00-0.23); BASOPHILS PERCENT AUTO 1 % (0-2); EOSINOPHILS PERCENT AUTO 2 % (0-6); Hematocrit 29.2 % (37.0-53.0); Hemoglobin 9.7 g/dL (13.5-17.5); IMMATURE GRAN ABSOLUTE AUTO 0.12 K/mm3 (0.00-0.10); IMMATURE GRAN PERCENT AUTO 1 % (0-1); LYMPHOCYTES ABSOLUTE AUTO 1.35 K/mm3 (0.84-5.20); LYMPHOCYTES PERCENT AUTO 14 % (21-46); MONOCYTES ABSOLUTE AUTO 0.56 K/mm3 (0.16-1.47); MONOCYTES PERCENT AUTO 6 % (4-13); Mean Corpuscular HGB 27.9 pg (26.0-34.0); Mean Corpuscular HGB Conc 33.2 g/dL (31.5-36.5); Mean Corpuscular Volume 84 fL (80-100); Mean Platelet Volume 9.6 fL (9.1-12.4); NEUTROPHILS ABSOLUTE AUTO 7.72 K/mm3 (1.96-9.15); NEUTROPHILS PERCENT AUTO 77 % (41-73); Platelet Count 247 K/mm3 (150-400); RDW Coefficient Variation 15.5 % (11.7-14.2); RDW Standard Deviation 45.4 fL (35.1-46.3); Red Blood Cell Count 3.48 M/mm3 (4.30-5.90)
[2023-08-11 12:38] LABS: Bilirubin, Urine Neg (Neg); Blood, Urine Neg (Neg); Glucose Qualitative, Urine 4+ (Neg); Ketones, Urine Neg (Neg); Leukocyte Esterase, Urine Neg (Neg); Nitrite, Urine Neg (Neg); Protein, Urine Neg (Neg); Urobilinogen, Urine NORM (Normal)
[2023-08-11 12:41] LABS: Appearance, Urine Clear (Clear); Color, Urine Yellow (P-Yellow)
[2023-08-11 13:10] LABS: Albumin, Blood 1.6 g/dL (3.4-5.0); Albumin/Globulin Ratio 0.4 (0.8-1.8); Bilirubin, Total 0.2 mg/dL (0.1-1.0); Calcium, Blood 7.7 mg/dL (8.5-10.1); Creatinine, Blood 1.01 mg/dL (0.60-1.20); Globulin, Blood 4.2 g/dL (2.2-4.0); Magnesium, Blood 1.6 mg/dL (1.6-2.4); Potassium, Blood 4.7 mmol/L (3.5-5.5); Total Protein, Blood 5.8 g/dL (6.4-8.2)
--- NOTE | 2023-08-11 22:23 | NUR ---
ARRIVAL TO PCU PT ARRIVED TO PCU8 APPROX 2049 VIA GURNEY. PT TRANSFERRED TO BED W/ STAFF ASSIST. ALERT, ORIENTED X4. COMMUNICATING W/ STAFF, ABLE TO STATE NEEDS. VSS ON ARRIVAL. HR 110'S, BP SOFT W/ MAP >65. DENIES CHEST PAIN/PRESSURE. SPO2 >95% ON RA. AFEBRILE. THIS RN NOTIFIED AT 2200 THAT PT'S SBP DROPPED TO 60'S, MAP <65. PT DENIES DIZZINESS OR LIGHTHEADEDNESS. CALL PLACED TO PHYSICIAN. ORDERS RECEIVED FOR 500ML BOLUS OF LR, INITIATED PER EMAR. [employer] CONSULTANT AWARE OF CURRENT CONDITION. WILL MONITOR BP RESPONSE TO FLUID BOLUS.
--- NOTE | 2023-08-11 23:01 | NUR ---
UPDATE CALL PLACED TO PHYSICIAN FOLLOWING COMPLETION OF 500ML LR BOLUS. PT HAS RECEIVED >4L FLUID FROM TOA IN ED TO THIS TIME. BP 62/45 FOLLOWING COMPLETION OF BOLUS COMPARED TO 69/40 PRIOR TO BOLUS. ORDERS RECEIVED FOR MIDODRINE 5MG PO NOW. WILL ADMINISTER PER EMAR AND CONTINUE TO MONITOR BP AND MAP. LR INFUSING AT 125ML/HR PER ORDERS.
[2023-08-12] VITALS (67 sets, daily range): BP systolic 63–136; BP diastolic 43–89
--- NOTE | 2023-08-12 02:15 | NUR ---
TRANSFER TO ICU PT TRANSFERRED TO ICU14 DUE TO PERSISTENT HYPOTENSION W/ MAP <65 AND ORDERS TO START LEVOPHED. REPORT TO GAGE PICKETT TO ASSUME CARE OF PT AT THIS TIME.
[2023-08-12 03:39] LABS: BASOPHILS ABSOLUTE AUTO 0.06 K/mm3 (0.00-0.23); BASOPHILS PERCENT AUTO 1 % (0-2); EOSINOPHILS ABSOLUTE AUTO 0.18 K/mm3 (0.00-0.68); EOSINOPHILS PERCENT AUTO 2 % (0-6); Hematocrit 27.8 % (37.0-53.0); Hemoglobin 9.1 g/dL (13.5-17.5); IMMATURE GRAN ABSOLUTE AUTO 0.09 K/mm3 (0.00-0.10); IMMATURE GRAN PERCENT AUTO 1 % (0-1); LYMPHOCYTES ABSOLUTE AUTO 1.21 K/mm3 (0.84-5.20); LYMPHOCYTES PERCENT AUTO 12 % (21-46); MONOCYTES ABSOLUTE AUTO 0.61 K/mm3 (0.16-1.47); MONOCYTES PERCENT AUTO 6 % (4-13); Mean Corpuscular HGB 27.5 pg (26.0-34.0); Mean Corpuscular HGB Conc 32.7 g/dL (31.5-36.5); Mean Corpuscular Volume 84 fL (80-100); Mean Platelet Volume 9.3 fL (9.1-12.4); NEUTROPHILS ABSOLUTE AUTO 8.28 K/mm3 (1.96-9.15); NEUTROPHILS PERCENT AUTO 79 % (41-73); Platelet Count 234 K/mm3 (150-400); RDW Coefficient Variation 15.6 % (11.7-14.2); Red Blood Cell Count 3.31 M/mm3 (4.30-5.90); White Blood Cell Count 10.43 K/mm3 (4.00-11.30)
[2023-08-12 03:49] LABS: Adenovirus F 40/41 Not Detected (NOT DETECT); Astrovirus Not Detected (NOT DETECT); Campylobacter Sp Not Detected (NOT DETECT); Cryptosporidium Not Detected (NOT DETECT); Cyclospora Cayetanensis Not Detected (NOT DETECT); E. Coli O157 Not Detected (NOT DETECT); Entamoeba Histolytica Not Detected (NOT DETECT); Enteroaggregative E. coli-EAEC Not Detected (NOT DETECT); Enteropathogenic E. coli-EPEC Not Detected (NOT DETECT); Enterotoxigenic E. coli-ETEC Not Detected (NOT DETECT); Giardia Lamblia Not Detected (NOT DETECT); Norovirus GI/GII Not Detected (NOT DETECT); Plesiomonas Shigelloides Not Detected (NOT DETECT); Rotavirus A Not Detected (NOT DETECT); Salmonella Sp Not Detected (NOT DETECT); Sapovirus Not Detected (NOT DETECT); Shiga Toxin-prod E. coli-STEC Not Detected (NOT DETECT); Shigella/Enteroin E. coli-EIEC Not Detected (NOT DETECT); Vibrio Cholerae Not Detected (NOT DETECT); Vibrio Sp Not Detected (NOT DETECT); Yersinia Enterocolitica Not Detected (NOT DETECT)
[2023-08-12 04:11] LABS: Albumin, Blood 1.4 g/dL (3.4-5.0); Albumin/Globulin Ratio 0.4 (0.8-1.8); Bilirubin, Total 0.4 mg/dL (0.1-1.0); Bun/Creatinine Ratio 6.3 (12.0-20.0); Calcium, Blood 7.1 mg/dL (8.5-10.1); Creatinine, Blood 0.95 mg/dL (0.60-1.20); Potassium, Blood 4.7 mmol/L (3.5-5.5); Total Protein, Blood 5.4 g/dL (6.4-8.2)
--- NOTE | 2023-08-12 04:35 | NUR ---
ARRIVAL TO ICU ARRIVED TO ICU 14 D/T HYPOTENSION. MAP 60'S, LEVOPHED STARTED IN PIV. FLUSHES EASILY, POSITIVE BLOOD RETURN, AND NO S/S OF INFILTRATION. SEE FLOWSHEET FOR TITRATIONS. OTHER VSS. DENIES PAIN. A/O X 4. MOVES ALL EXTREMITIES. RECENT R SECOND TOE AMPUTATION SITE RED AND WARM TO TOUCH. SUTURES IN PLACE. FOOT BOOT IN PLACE. PT HAS LEFT BKA. USES URINAL IND IN BED. CALL LIGHT IN REACH.
--- NOTE | 2023-08-12 07:00 | NUR ---
ASSUMPTION OF CARE PT RECEIVING LEVOPHED 2MCG/MIN AND NS 125ML/HR. PT IS ALERT AND ORIENTED. REPORTS NOT SLEEPING WELL LAST NIGHT. SINUS RHYTHM ON MONITOR WITH RATE IN 90S. PT VOIDED IN URINAL INDEPENDENTLY. HE DENIES PAIN/DISCOMFORT. PT DENIES BREAKFAST AND REPORTS A DECREASED APPETITE AT BASELINE. HE STS SINCE HE HAD HIS GASTRIC BYPASS FOOD DOES NOT TASTE GOOD AND HE CAN ONLY TAKE A FEW BITES BEFORE FEELING FULL. HE HAS BEEN ATTEMPTING TO FIND A SUPPLEMENTAL SHAKE THAT HE LIKES. HE STS INSULIN IS NEWER TO HIM, PROVIDED EDUCATION. PT VERBALIZES UNDERSTANDING. BED IN LOW POSITION, CALL LIGHT WITHIN REACH.
[2023-08-12 10:33] LABS: Vancomycin, Random 21.4 ug/mL
--- NOTE | 2023-08-12 17:10 | NUR ---
UPDATE PLAN FOR MRI AROUND 1800.
--- NOTE | 2023-08-12 17:36 | NUR ---
SHIFT SUMMARY LEVOPHED HAS BEEN OFF SINCE 1400. PT REMAINS ALERT AND ORIENTED WITH PLEASANT AFFECT. HE IS A MINIMAL ASSIST TO GET OUT OF BED AND WALK TO THE TOILET WITH THE WALKER. OFFERED RECLINER BUT PT DENIED. HE HAS BEEN ON RA THROUGHOUT THE DAY, DENIES SOB. NSR ON MONITOR WITH RATE IN 80S-90S. MIDODRINE STARTED THIS AFTERNOON, MAP >65. PT HAS VOIDED SEVERAL TIMES THROUGHOUT THE DAY. HE HAD TWO SMALL BMS. PT REFUSED BREAKFAST AND DINNER. HE ATE A FEW BITES OF LUNCH BUT THEN HAD ONE EPISODE OF EMESIS. HE DENIED A DOOR LINER HELPER CONSULT. R FOOT REMAINS RED. SUTURES INTACT. PLAN FOR MRI AT APPROX 1800.
--- NOTE | 2023-08-12 21:47 | NUR ---
ASSUMED CARE ASSUMED CARE AT 1900. PT A/O X4. MOVES ALL EXTREMITIES. C/O NAUSEA AND HEADACHE. PT MEDICATED PER EMAR WITH GOOD EFFECT. SR RATE 90'S. VSS. BP SOFT WITH MAPS LESS THEN 65 AFTER PM MEDS AND PT SLEEPING. PT HAS PG TO LUE. DIFFICULT TO OBTAIN OTHER ACCESS. CALL TO HOSP. ORDER TO GIVE 1L NS BOLUS. NS AT 125ML/HR. PT USING URINAL IND IN BED. CALL LIGHT IN REACH.
[2023-08-13] VITALS (49 sets, daily range): BP systolic 87–126; BP diastolic 49–103
[2023-08-13 03:52] LABS: BASOPHILS ABSOLUTE AUTO 0.03 K/mm3 (0.00-0.23); BASOPHILS PERCENT AUTO 1 % (0-2); EOSINOPHILS ABSOLUTE AUTO 0.12 K/mm3 (0.00-0.68); EOSINOPHILS PERCENT AUTO 2 % (0-6); Hematocrit 24.3 % (37.0-53.0); Hemoglobin 7.9 g/dL (13.5-17.5); IMMATURE GRAN ABSOLUTE AUTO 0.04 K/mm3 (0.00-0.10); IMMATURE GRAN PERCENT AUTO 1 % (0-1); LYMPHOCYTES ABSOLUTE AUTO 1.02 K/mm3 (0.84-5.20); LYMPHOCYTES PERCENT AUTO 17 % (21-46); MONOCYTES ABSOLUTE AUTO 0.49 K/mm3 (0.16-1.47); MONOCYTES PERCENT AUTO 8 % (4-13); Mean Corpuscular HGB 27.5 pg (26.0-34.0); Mean Corpuscular HGB Conc 32.5 g/dL (31.5-36.5); Mean Corpuscular Volume 85 fL (80-100); Mean Platelet Volume 9.3 fL (9.1-12.4); NEUTROPHILS ABSOLUTE AUTO 4.43 K/mm3 (1.96-9.15); NEUTROPHILS PERCENT AUTO 72 % (41-73); Platelet Count 184 K/mm3 (150-400); RDW Coefficient Variation 15.8 % (11.7-14.2); RDW Standard Deviation 46.8 fL (35.1-46.3); Red Blood Cell Count 2.87 M/mm3 (4.30-5.90); White Blood Cell Count 6.13 K/mm3 (4.00-11.30)
[2023-08-13 04:29] LABS: Albumin, Blood 1.2 g/dL (3.4-5.0); Albumin/Globulin Ratio 0.4 (0.8-1.8); Bilirubin, Total 0.2 mg/dL (0.1-1.0); Bun/Creatinine Ratio 7.8 (12.0-20.0); Calcium, Blood 6.7 mg/dL (8.5-10.1); Creatinine, Blood 0.77 mg/dL (0.60-1.20); Globulin, Blood 3.3 g/dL (2.2-4.0); Total Protein, Blood 4.5 g/dL (6.4-8.2)
--- NOTE | 2023-08-13 05:12 | NUR ---
SHIFT SUMMARY NO ACUTE EVENTS T/O NIGHT. PT BP REMAINED SOFT AND REQUIRED A SECOND 1L BOLUS OF NS TO OBTAIN MAPS GREATER THEN 65. RESPONDED WELL. PT DENIED DIZZINESS OR LIGHTHEADEDNESS WHEN BP LOW. OTHER VSS. SR/ST 80-100'S. PT ABLE TO SLEEP MUCH OF THE NIGHT. NO C/O N/V SINCE START OF SHIFT. NS AT 150ML/HR. USES URINAL IND. CALL LIGHT IN REACH. WILL REPORT OFF TO ONCOMING RN.
[2023-08-13 11:39] LABS: Vancomycin, Trough 14.3 ug/mL (5.0-10.0)
--- NOTE | 2023-08-13 17:04 | NUR ---
Transferred pt to PCU at 1650. Report given to LEAD APPLIER. All personal belongings sent with patient to new room. No acute needs at time of transfer.
--- NOTE | 2023-08-13 21:41 | NUR ---
ASSUMPTION OF CARE AFTER RECEIVING REPORT FROM LIANE PICKETT, THIS RN ASSUMED CARE AT APPROX 1915. PATIENT AWAKE, SITTING UP IN BED WATCHING TV. IS ALERT AND ORIENTED X4. COOPERATIVE WITH CARE AND ABLE TO COMMUNICATE NEEDS EFFECTIVELY. VSS. TELEMETRY SHOWING SINUS 80's. BP STABLE. DENIES CHEST PAIN OR PRESSURE. ON ROOM AIR, SATS >92%. HISTORY OF RICARDO, REPORTS NO USE OF OXYGEN WHILE SLEEPING. REPORTS NO SHORTNESS OF BREATH AT REST. RR 18-20. PATIENT REPORTS FEELING INCREASED FATIGUE RELATED TO INCREASED ACTIVITY DURING THE DAY, PLAN TO CLUSTER CARE TO ALLOW FOR INCREASED DURATION OF SLEEP. USES URINAL INDEPENDENTLY IN ROOM. IS A STAND BY ASSIST WITH FWW AND PROSTHETIC FOR MOBILITY. CALL LIGHT IN REACH.
[2023-08-14 03:49] VITALS: BP 124/72
--- NOTE | 2023-08-14 04:20 | NUR ---
SHIFT SUMMARY NO ACUTE CHANGES SINCE ASSUMPTION OF CARE NOTE. PATIENT SLEPT THROUGHOUT SHIFT, EASILY AROUSABLE TO VERBAL STIMULI. TELEMETRY SHOWING SINUS 80's. BP STABLE. ON ROOM AIR, SATS >92%. ABLE TO REPOSITION HIMSELF IN BED INDEPENDENTLY. USES URINAL INDEPENDENTLY, VOIDING. NO BM THIS SHIFT. CALL LIGHT IN REACH. WILL REPORT TO ONCOMING RN.
[2023-08-14 04:31] LABS: BASOPHILS ABSOLUTE AUTO 0.03 K/mm3 (0.00-0.23); BASOPHILS PERCENT AUTO 1 % (0-2); EOSINOPHILS ABSOLUTE AUTO 0.15 K/mm3 (0.00-0.68); EOSINOPHILS PERCENT AUTO 3 % (0-6); Hematocrit 23.4 % (37.0-53.0); Hemoglobin 7.5 g/dL (13.5-17.5); IMMATURE GRAN ABSOLUTE AUTO 0.05 K/mm3 (0.00-0.10); IMMATURE GRAN PERCENT AUTO 1 % (0-1); LYMPHOCYTES ABSOLUTE AUTO 0.89 K/mm3 (0.84-5.20); LYMPHOCYTES PERCENT AUTO 16 % (21-46); MONOCYTES ABSOLUTE AUTO 0.41 K/mm3 (0.16-1.47); MONOCYTES PERCENT AUTO 7 % (4-13); Mean Corpuscular HGB 27.7 pg (26.0-34.0); Mean Corpuscular HGB Conc 32.1 g/dL (31.5-36.5); Mean Corpuscular Volume 86 fL (80-100); Mean Platelet Volume 9.6 fL (9.1-12.4); NEUTROPHILS PERCENT AUTO 72 % (41-73); Platelet Count 172 K/mm3 (150-400); RDW Coefficient Variation 15.9 % (11.7-14.2); RDW Standard Deviation 48.7 fL (35.1-46.3); Red Blood Cell Count 2.71 M/mm3 (4.30-5.90); White Blood Cell Count 5.53 K/mm3 (4.00-11.30)
[2023-08-14 04:48] LABS: Albumin, Blood 1.1 g/dL (3.4-5.0); Anion Gap 2 mmol/L (6-16); Blood Urea Nitrogen 6 mg/dL (8-24); Bun/Creatinine Ratio 7.3 (12.0-20.0); CO2, Blood 22 mmol/L (21-32); Calcium, Blood 6.8 mg/dL (8.5-10.1); Chloride, Blood 118 mmol/L (98-108); Creatinine, Blood 0.82 mg/dL (0.60-1.20); Glomerular Filtration Rate 95 (60-); Glucose, Blood 84 mg/dL (70-99); Magnesium, Blood 1.3 mg/dL (1.6-2.4); Phosphorus, Blood 2.3 mg/dL (2.5-4.9); Potassium, Blood 3.9 mmol/L (3.5-5.5); Sodium, Blood 142 mmol/L (136-145)
[2023-08-14 07:29] VITALS: BP 106/67
[2023-08-14 11:23] VITALS: BP 113/99
[2023-08-14 15:22] VITALS: BP 124/67
--- NOTE | 2023-08-14 17:49 | NUR ---
SHIFT SUMMARY; ASSUMED CARE AT 0700. A/A/OX4 DURING SHIFT. PLEASANT AND COOPERATIVE WITH CARE. REPOSITIONS SELF IN BED, USES URINAL AT BEDSIDE. SBA TO RESTROOM DURING SHIFT WITH USE OF LEFT PROSTESIS AND FWW. NS INFUSING AT 150ML/HR. ABX PER EMAR. REPORTS DIARRHEA WHICH BEEN CHRONIC AT HOME WELL, SPOKE WITH DR. EVERETT REGARDING IT, VERBAL ORDER FOR [place] FLAKES WITH MEALS. MINIMAL PO INTAKE, DISCUSSED WITH PT, STATES HAS NOT BEEN HUNGRY AT HOME EITHER AND IS WORKING WITH PCP FOR CHRONIC ABD PAIN. ABD SOFT AND NON TENDER, BS T/O. VSS, WILL CONTINUE TO MONITOR AND TREAT UNTIL CHANGE OF SHIFT.
[2023-08-14 19:29] VITALS: BP 121/66
--- NOTE | 2023-08-14 21:08 | NUR ---
ASSUMPTION OF CARE AFTER RECEIVING REPORT FROM ITZEL PICKETT, THIS RN ASSUMED CARE AT APPROX 1915. PATIENT ALERT, SITTING UP IN BED WATCHING TV. IS ALERT AND ORIENTED X4. COOPERATIVE WITH CARE. IS MEDICAL STATUS WITHOUT TELEMETRY. PRIOR TO REMOVAL, TELEMETRY SHOWING SINUS 70's. BP STABLE. DENIES CHEST PAIN OR PRESSURE. IS ON ROOM AIR, SATS >92%. NO REPORT OF SHORTNESS OF BREATH AT REST. GAUZE AND WRAP DRESSING IN PLACE ON RLE WOUND, NO SHADOWING NOTED. C/D/I. DENIES PAIN. USES URINAL INDEPENDENTLY IN BED. IS A SBA WITH FWW AND PROSTHETIC WITH AMBULATION. CALL LIGHT IN REACH.
[2023-08-15 00:10] VITALS: BP 103/60
[2023-08-15 04:02] VITALS: BP 101/65
--- NOTE | 2023-08-15 04:35 | NUR ---
SHIFT SUMMARY NO ACUTE CHANGES SINCE ASSUMPTION OF CARE NOTE. PATIENT SLEPT THROUGHOUT SHIFT, EASILY AROUSABLE TO VERBAL STIMULI. VSS. REMAINS ON ROOM AIR, SATS >92%. VOIDING. NO BM THIS SHIFT. ABLE TO REPOSITION HIMSELF INDEPENDENTLY IN BED. IVF INFUSING PER EMAR. CALL LIGHT IN REACH. WILL REPORT TO ONCOMING RN.
[2023-08-15 07:21] VITALS: BP 120/74
[2023-08-15 11:31] LABS: Creatinine, Blood 0.85 mg/dL (0.60-1.20); Vancomycin, Trough 16.1 ug/mL (5.0-10.0)
[2023-08-15 12:10] LABS: Albumin, Blood 1.2 g/dL (3.4-5.0); Anion Gap 5 mmol/L (6-16); Blood Urea Nitrogen 5 mg/dL (8-24); Bun/Creatinine Ratio 5.6 (12.0-20.0); CO2, Blood 22 mmol/L (21-32); Chloride, Blood 115 mmol/L (98-108); Creatinine, Blood 0.89 mg/dL (0.60-1.20); Glomerular Filtration Rate 93 (60-); Glucose, Blood 96 mg/dL (70-99); Magnesium, Blood 1.7 mg/dL (1.6-2.4); Phosphorus, Blood 1.5 mg/dL (2.5-4.9); Potassium, Blood 3.7 mmol/L (3.5-5.5); Sodium, Blood 142 mmol/L (136-145)
[2023-08-15 15:51] VITALS: BP 114/67
--- NOTE | 2023-08-15 17:55 | NUR ---
SHIFT SUMMARY; ASSUMED CARE AT 0700. A/A/OX4 DURING SHIFT. PLEASANT AND COOPERATIVE WITH CARE. REPOSITIONS SELF NEEDED IN BED. AMBULATED TODAY WITH FWW AND PROSTETIC. NS INFUSING AT 150ML/HR. VSS, REPORT TO MEDICAL FLOOR RN TO ASSUME CARE.
--- NOTE | 2023-08-15 18:38 | NUR ---
LATE ENTRY- PT TRANSFERED FROM PCU. ALERT ORIENTED X4, ABLE TO MAKE NEEDS KNOWN. R/A, DECLINED FOOD TRAY.
[2023-08-15 19:34] VITALS: BP 128/72
[2023-08-15 23:55] VITALS: BP 118/78
[2023-08-16 03:46] VITALS: BP 120/70
--- NOTE | 2023-08-16 04:52 | NUR ---
SHIFT SUMMARY PATIENT HAD NO ACUTE CHANGES. AXOX 4 AND ONE ASSIST WITH FWW AND PROSTHETIC LEG, L BKA. POWERGLIDE RU ARM INTACT. PIV REMAINS INTACT. NS INFUSING AT 150 mL/HR. IV ABX INFUSED. CBG 86. VSS/AFEBRILE. DENIES CHEST PAIN, SOB, AND N/V. SLEPT MOST OF THE SHIFT. CALL LIGHT IN REACH. BED IN LOWEST POSITION. WILL CONTINUE TO MONITOR UNTIL DAY SHIFT NURSE ASSUMES CARE.
[2023-08-16 05:56] LABS: BASOPHILS ABSOLUTE AUTO 0.03 K/mm3 (0.00-0.23); BASOPHILS PERCENT AUTO 1 % (0-2); EOSINOPHILS ABSOLUTE AUTO 0.17 K/mm3 (0.00-0.68); EOSINOPHILS PERCENT AUTO 3 % (0-6); Hematocrit 24.5 % (37.0-53.0); IMMATURE GRAN ABSOLUTE AUTO 0.06 K/mm3 (0.00-0.10); IMMATURE GRAN PERCENT AUTO 1 % (0-1); LYMPHOCYTES ABSOLUTE AUTO 0.84 K/mm3 (0.84-5.20); LYMPHOCYTES PERCENT AUTO 14 % (21-46); MONOCYTES ABSOLUTE AUTO 0.52 K/mm3 (0.16-1.47); MONOCYTES PERCENT AUTO 9 % (4-13); Mean Corpuscular HGB 27.8 pg (26.0-34.0); Mean Corpuscular HGB Conc 32.7 g/dL (31.5-36.5); Mean Corpuscular Volume 85 fL (80-100); NEUTROPHILS ABSOLUTE AUTO 4.26 K/mm3 (1.96-9.15); NEUTROPHILS PERCENT AUTO 73 % (41-73); Platelet Count 159 K/mm3 (150-400); RDW Coefficient Variation 16.2 % (11.7-14.2); Red Blood Cell Count 2.88 M/mm3 (4.30-5.90); White Blood Cell Count 5.88 K/mm3 (4.00-11.30)
[2023-08-16 06:18] LABS: Albumin, Blood 1.2 g/dL (3.4-5.0); Anion Gap 5 mmol/L (6-16); Blood Urea Nitrogen 5 mg/dL (8-24); Bun/Creatinine Ratio 6.2 (12.0-20.0); CO2, Blood 20 mmol/L (21-32); Calcium, Blood 7.2 mg/dL (8.5-10.1); Chloride, Blood 117 mmol/L (98-108); Glomerular Filtration Rate 96 (60-); Glucose, Blood 93 mg/dL (70-99); Phosphorus, Blood 1.6 mg/dL (2.5-4.9); Potassium, Blood 4.2 mmol/L (3.5-5.5); Sodium, Blood 142 mmol/L (136-145)
[2023-08-16 07:38] VITALS: BP 116/67
[2023-08-16] MEDS ORDERED: DULO60 PO (11:26)
[2023-08-16] MEDS ORDERED: Acetaminophen650 M1 PO (11:27)
[2023-08-16] MEDS ORDERED: BANATROL PLUS1 EAC1 PO (11:27)
[2023-08-16] MEDS ORDERED: MIDO5 PO (11:29)
[2023-08-16] MEDS ORDERED: B-1100 M2 PO (11:29)
[2023-08-16] MEDS ORDERED: PROBIOTIC1 EA13 PO (11:31)
[2023-08-16] MEDS ORDERED: AMOX-CLAV 875-1 EAC5 PO (11:32)
[2023-08-16] MEDS ORDERED: CIPR750 PO (11:33)
--- NOTE | 2023-08-16 15:29 | NUR ---
PT DISCHARGED HOME. SPOUSE AT BEDSIDE. DISCUSSED DISCHARGE INSTRUCTIONS WITH PT AND SPOUSE. EMPHASIZED IMPORTANCE OF FOLLOW UP APPIONTMENTS AND EXPRESSED CONCERN FOR REFUSAL OF FOOD. STRONGLY RECOMMENDED HE TALK WITH PCP ABOUT THE ANAREXIA. HE STATED THAT HE WOULD GET INSTANTLY SICK TO THE STOMACH IF HE ATE OR DRANK AND THING OTHER THAN WATER. OFFERED DIFFERENT MENU OPTIONS. PT DECLINED. HE REPORTED PAST HISTORY OF GASTRIC BYPASS SURGERY THAT HAS EFFECTED HIS APPETITE. EMPHASIZED THE IMPORTANCE OF CHECKING CBG BEFORE MEALS AND BED ALSO TO MONITOR BP, IDEALLY MORNING AND NIGHT. PT DISCHARGED ON MIDODRINE. PT LEFT WITH ALL BELONGINGS INCLUDING PROSTESIS. PT HAD NO QUESTIONS OR CONCERNS AT DISCHARGE. R.A. SBA TO WHEELCHAIR.
== END 2023-08-16 12:21 | disposition home or self-care (01) | DRG 871 ==
LOC: ER 11:47 → PCU 18:26 → ICUE 18:26 → PCU 20:50 → ICUE 08-12 01:47 → PCU 08-13 16:49 → MEDS 08-15 17:48
PROVIDERS: Family Medicine; Physician Assistant; ADMIT Internal Medicine
PROC: 3E03329 Introduction of Other Anti-infective into Peripheral Vein, Percutaneous Approach (ICD-10-PCS; principal; 2023-08-11)
PROC: 3E033XZ Introduction of Vasopressor into Peripheral Vein, Percutaneous Approach (ICD-10-PCS; 2023-08-11)
DX: A41.9 Sepsis, unspecified organism (principal); R65.21 Severe sepsis with septic shock; N39.0 Urinary tract infection, site not specified; L03.115 Cellulitis of right lower limb; E87.1 Hypo-osmolality and hyponatremia; M86.8X7 Other osteomyelitis, ankle and foot; E87.20 Acidosis, unspecified; E11.69 Type 2 diabetes mellitus with other specified complication; E87.6 Hypokalemia; D69.6 Thrombocytopenia, unspecified; G43.909 Migraine, unspecified, not intractable, without status migrainosus; K21.9 Gastro-esophageal reflux disease without esophagitis; F10.20 Alcohol dependence, uncomplicated; E11.42 Type 2 diabetes mellitus with diabetic polyneuropathy; D64.9 Anemia, unspecified; F32.A Depression, unspecified; E66.9 Obesity, unspecified; G47.33 Obstructive sleep apnea (adult) (pediatric); E11.51 Type 2 diabetes mellitus with diabetic peripheral angiopathy without gangrene; K58.9 Irritable bowel syndrome, unspecified; F12.90 Cannabis use, unspecified, uncomplicated; Z88.1 Allergy status to other antibiotic agents; Z87.19 Personal history of other diseases of the digestive system; Z89.421 Acquired absence of other right toe(s); Z88.5 Allergy status to narcotic agent; Z79.4 Long term (current) use of insulin; Z79.899 Other long term (current) drug therapy; Z98.84 Bariatric surgery status; Z89.512 Acquired absence of left leg below knee; Z89.411 Acquired absence of right great toe; Z98.890 Other specified postprocedural states; Z98.1 Arthrodesis status; Z68.24 Body mass index [BMI] 24.0-24.9, adult
CPT/HCPCS: 36415; 73630; 73718; 80053; 80069; 80202; 81003; 82565; 82947; 83605; 83735; 85025; 85651; 86140; 87040; 87507; 93005; 93010; 94760; 96361; 96365; 96366; 96367; 99285-25; A9270; C1751; J0690; J0692; J1650; J1815; J3370; J3475; J7030; J7050; J7060; J7120; Q2036

== ENCOUNTER → 2023-08-24 | Outpatient (CLI) | payer OTHER ==
[~2023-08-24] MED LIST changes: +AMOX-CLAV 875-1 EAC5 PO; +Acetaminophen650 M1 PO; +B-1100 M2 PO; +BANATROL PLUS1 EAC1 PO; +CIPR750 PO; +DULO60 PO; +MIDO5 PO; +PROBIOTIC1 EA13 PO
[2023-08-24 13:10] LABS: Source, Urine Clean Catch
[2023-08-24 15:43] LABS: Appearance, Urine Hazy (Clear); Bilirubin, Urine Neg (Neg); Blood, Urine Neg (Neg); Color, Urine Yellow (P-Yellow); Glucose Qualitative, Urine 3+ (Neg); Ketones, Urine Neg (Neg); Leukocyte Esterase, Urine Neg (Neg); Nitrite, Urine Neg (Neg); Protein, Urine Neg (Neg); Specific Gravity, Urine 1.015 (1.003-1.022); Urobilinogen, Urine NORM (Normal)
[2023-08-24 16:06] LABS: Red Blood Cells, Urine 0-2 /hpf (0-2); Squamous Epithelial Cells Rare /hpf (Few); White Blood Cells, Urine 0-2 /hpf (0-5)
[2023-08-24 16:07] LABS: Bacteria Few /hpf; Yeast/Fungi Urine Many /hpf
[2023-08-24 17:41] LABS: C DIFFICILE DNA NEGATIVE (Negative)
== END | disposition home or self-care (01) ==
LOC: LAB 08:45 → LAB SHORT 08:45
PROVIDERS: Physician Assistant
DX: N34.2 Other urethritis (principal); R19.7 Diarrhea, unspecified
CPT/HCPCS: 81001; 87015; 87045; 87046; 87205; 87493; 87899

== ENCOUNTER 2023-12-14 17:31 | Inpatient (IN) | payer OTHER ==
[~2023-12-14] VITALS: Ht 182.9 cm; Wt 77.2 kg
[2023-12-14] MEDS ORDERED: NS 1,000 ML IV SCH ×2 (18:20→22:20)
[2023-12-14] MEDS ORDERED: Ondansetron HCl 2 MG / ML 2ML Vial IV ONE (18:20)
[2023-12-14 19:20] LABS: BASOPHILS ABSOLUTE AUTO 0.03 K/mm3 (0.00-0.23); BASOPHILS PERCENT AUTO 0 % (0-2); EOSINOPHILS ABSOLUTE AUTO 0.01 K/mm3 (0.00-0.68); EOSINOPHILS PERCENT AUTO 0 % (0-6); Hematocrit 23.9 % (37.0-53.0); Hemoglobin 7.6 g/dL (13.5-17.5); IMMATURE GRAN ABSOLUTE AUTO 0.19 K/mm3 (0.00-0.10); IMMATURE GRAN PERCENT AUTO 2 % (0-1); LYMPHOCYTES PERCENT AUTO 12 % (21-46); MONOCYTES ABSOLUTE AUTO 0.62 K/mm3 (0.16-1.47); MONOCYTES PERCENT AUTO 5 % (4-13); Mean Corpuscular HGB 32.5 pg (26.0-34.0); Mean Corpuscular HGB Conc 31.8 g/dL (31.5-36.5); Mean Corpuscular Volume 102 fL (80-100); Mean Platelet Volume 10.2 fL (9.1-12.4); NEUTROPHILS ABSOLUTE AUTO 10.73 K/mm3 (1.96-9.15); NEUTROPHILS PERCENT AUTO 82 % (41-73); Platelet Count 148 K/mm3 (150-400); RDW Coefficient Variation 17.8 % (11.7-14.2); RDW Standard Deviation 63.7 fL (35.1-46.3); Red Blood Cell Count 2.34 M/mm3 (4.30-5.90); White Blood Cell Count 13.08 K/mm3 (4.00-11.30)
[2023-12-14 19:42] LABS: Base Excess Venous -2.7 mmol/L; Bicarbonate Venous 22.4 mmol/L (24.0-30.0); PCO2 Venous 34.3 mmHg (38-42); pH Blood Venous 7.41 (7.34-7.37)
[2023-12-14 19:43] LABS: Albumin, Blood 1.2 g/dL (3.4-5.0); Albumin/Globulin Ratio 0.3 (0.8-1.8); Bilirubin, Total 3.5 mg/dL (0.1-1.0); Bun/Creatinine Ratio 9.2 (12.0-20.0); Calcium, Blood 7.6 mg/dL (8.5-10.1); Creatinine, Blood 0.77 mg/dL (0.60-1.20); Magnesium, Blood 1.7 mg/dL (1.6-2.4); Potassium, Blood 3.2 mmol/L (3.5-5.5); Total Protein, Blood 5.2 g/dL (6.4-8.2)
[2023-12-14 20:00] LABS: Influenza A, PCR NEGATIVE (NEGATIVE); Influenza B, PCR NEGATIVE (NEGATIVE); Resp Syncytial Virus, PCR NEGATIVE (NEGATIVE); SARS-Cov-2 (COVID-19) PCR, MMC NEGATIVE (NEGATIVE)
[2023-12-14] MEDS ORDERED: Potassium Chl 20MEQ/Water100ML 100 ML IV SCH (20:45)
[2023-12-14 21:03] LABS: Bilirubin, Direct 3.1 mg/dL (0.0-0.3); Percent Saturation 95.5 % (20.0-50.0)
[2023-12-14] MEDS ORDERED: Folic Acid 1 MG in NS 50 ML IV ONE (22:25)
[2023-12-14] MEDS ORDERED: Vancomycin HCL 1,250 MG in NS 262.5 ML IV ONE (22:25)
[2023-12-14] MEDS ORDERED: Cefepime HCl 1,000 MG in NS 100 ML IV ONE (22:25)
[2023-12-14] MEDS ORDERED: Thiamine HCl 100 MG in NS 50 ML IV ONE (22:25)
[2023-12-14] MEDS ORDERED: ChlordiazePOXIDE 25 MG Cap PO PRN ×2 (23:40→23:45)
[2023-12-14] MEDS ORDERED: Ondansetron HCl 2 MG / ML 2ML Vial IV PRN (23:45)
[2023-12-14] MEDS ORDERED: LORazepam 2 MG/ML 1ML Injection IV PRN ×2 (23:45)
[2023-12-14] MEDS ORDERED: Acetaminophen 325 MG TABLET PO PRN (23:45)
[2023-12-15] VITALS (85 sets, daily range): BP systolic 75–117; BP diastolic 47–96
[2023-12-15] MEDS ORDERED: Midodrine 5 MG Tab PO SCH
[2023-12-15] MEDS ORDERED: Albumin (Human) 25gm/100ml 100 ML IV ONE (01:30)
[2023-12-15] MEDS ORDERED: NS 250 ML IV PRN (01:45)
[2023-12-15] MEDS ORDERED: CefTRIAXone Sodium 1,000 MG in NS 100 ML IV SCH (02:00)
--- NOTE | 2023-12-15 02:00 | NUR ---
ARRIVAL TO PCU: PT ARRIVED TO PCU8 VIA [facility] AT 0107. PT ALERT, ORIENTED X4 ON ARRIVAL. SLID FROM RBEA[facility]ONT TO BED BY STAFF DUE TO WEAKNESS. PT ABLE TO ANSWER QUESTIONS APPROPRIATELY AT TIMES, DOES NOT PARTICIPATE IN CONVERSATIONS AT OTHER TIMES. HR 80-90'S, SINUS ON TELE. SBP 80-90'S, MAP >65. MIDODRINE & ALBUMIN ADMINISTERED PER EMAR. SPO2 >90% ON RA ON ARRIVAL, HOWEVER PT DESATS INTO 60'S WHILE ASLEEP AT TIMES; 2-3L VIA NC WHILE ASLEEP TO MAINTAIN SPO2 >90%. AFEBRILE. CONDOM CATH PLACED DUE TO URINARY INCONTINENCE, ATTENDS C/D/I. BLANCHABLE REDNESS TO COCCYX NOTED ON ARRIVAL, MEPILEX PLACED & HIPS FLOATED TO RELIEVE PRESSURE TO AREA. R HEEL W/ EXCORIATION, HEEL PROTECTOR IN PLACE. DEPUTY SHERIFF TO BEDSIDE TO PLACE POWERGLIDE TO PABLO. IV ABX & FOLIC ACID/THIAMINE INFUSING PER EMAR. PT REPORTS RECENT 20LB WEIGHT LOSS & LACK OF APPETITE. NO REPORTED N/V, TOLERATING PO FLUIDS. ORIENTED PT TO ROOM/UNIT/CALL LIGHT. FIRE SAFETY/IGNITION RISK ASSESSED; PT IS NON-SMOKER, NO IGNITION SOURCES PRESENT ON ADMISSION. THIS RN OFFERED TO PLACE CALL TO TO NOTIFY OF ADMISSION, PT DECLINED. NO OTHER NEEDS AT THIS TIME, CALL LIGHT IN REACH.
[2023-12-15 03:00] LABS: BASOPHILS ABSOLUTE AUTO 0.01 K/mm3 (0.00-0.23); BASOPHILS PERCENT AUTO 0 % (0-2); EOSINOPHILS ABSOLUTE AUTO 0.01 K/mm3 (0.00-0.68); EOSINOPHILS PERCENT AUTO 0 % (0-6); IMMATURE GRAN ABSOLUTE AUTO 0.21 K/mm3 (0.00-0.10); IMMATURE GRAN PERCENT AUTO 2 % (0-1); LYMPHOCYTES ABSOLUTE AUTO 0.78 K/mm3 (0.84-5.20); LYMPHOCYTES PERCENT AUTO 8 % (21-46); MONOCYTES ABSOLUTE AUTO 0.48 K/mm3 (0.16-1.47); MONOCYTES PERCENT AUTO 5 % (4-13); Mean Corpuscular HGB 32.6 pg (26.0-34.0); Mean Corpuscular HGB Conc 31.1 g/dL (31.5-36.5); Mean Corpuscular Volume 105 fL (80-100); NEUTROPHILS PERCENT AUTO 86 % (41-73); Platelet Count 121 K/mm3 (150-400); RDW Coefficient Variation 17.8 % (11.7-14.2); RDW Standard Deviation 66.2 fL (35.1-46.3); Red Blood Cell Count 1.81 M/mm3 (4.30-5.90); White Blood Cell Count 10.39 K/mm3 (4.00-11.30)
[2023-12-15 03:18] LABS: International Normalized Ratio 1.14; Prothrombin Time Results 11.9 Sec (9.7-11.5)
[2023-12-15 03:46] LABS: Hemoglobin 5.9 g/dL (13.5-17.5)
[2023-12-15 04:15] LABS: Acetaminophen, Random 3.1 ug/mL (10.0-30.0); Magnesium, Blood 1.4 mg/dL (1.6-2.4)
--- NOTE | 2023-12-15 04:20 | NUR ---
UPDATE: THIS RN NOTIFIED OF AM HGB 5.9. CALL PLACED TO DR. BASHIR W/ RESULTS. ORDERS RECEIVED TO DRAW TYPE & SCREEN, INFUSE 2U PRBC'S. DR. PRATT WILL COME TO BEDSIDE TO OBTAIN CONSENT FOR BLOOD TRANSFUSION. MANAGER CRISIS UPDATED.
[2023-12-15 04:22] LABS: Albumin, Blood 1.4 g/dL (3.4-5.0); Albumin/Globulin Ratio 0.4 (0.8-1.8); Bilirubin, Total 3.5 mg/dL (0.1-1.0); Bun/Creatinine Ratio 9.8 (12.0-20.0); Calcium, Blood 6.8 mg/dL (8.5-10.1); Creatinine, Blood 0.72 mg/dL (0.60-1.20); Globulin, Blood 3.3 g/dL (2.2-4.0); Potassium, Blood 3.5 mmol/L (3.5-5.5); Total Protein, Blood 4.7 g/dL (6.4-8.2)
--- NOTE | 2023-12-15 04:33 | NUR ---
UPDATE: DR. PRATT TO BEDSIDE TO OBTAIN CONSENT FOR BLOOD TRANSFUSION. PT UNABLE TO ANSWER QUESTIONS APPROPRIATELY & IS FALLING ASLEEP MID-CONVERSATION AT THIS TIME. DR. PRATT ATTEMPTING TO CONTACT PT'S SPOUSE IN REGARDS TO A BLOOD TRANSFUSION. BP 83/50 W/ MAP 62. ORDERS TO TRANSFER PT TO ICU & START LEVOPHED. BAILIFF NOTIFIED, AWAITING BED.
[2023-12-15 04:59] LABS: RETICULOCYTE ABSOLUTE 0.1717 M/mm3 (0.0200-0.1100); RETICULOCYTE COUNT PERCENT 9.54 % (0.50-2.50)
--- NOTE | 2023-12-15 05:19 | NUR ---
TRANSFER TO ICU: REPORT TO GORDO PICKETT TO ASSUME CARE OF PT. PT TRANSFERRED TO ICU6 BY THIS RN. ALL PERSONAL BELONGINGS TRANSFERRED W/ PT. PT'S SPOUSE UPDATED BY DR. PRATT.
[2023-12-15 05:56] LABS: Source, Urine Clean Catch
[2023-12-15] MEDS ORDERED: Pantoprazole Sodium 40 MG Injection IV ONE (06:00)
[2023-12-15 06:08] LABS: Appearance, Urine Hazy (Clear); Blood, Urine 1+ (Neg); Color, Urine Amber (P-Yellow); Glucose Qualitative, Urine Neg (Neg); Ketones, Urine 2+ (Neg); Leukocyte Esterase, Urine 3+ (Neg); Nitrite, Urine Pos (Neg); Protein, Urine 2+ (Neg); Urobilinogen, Urine 2+ (Normal)
[2023-12-15 06:20] LABS: Bilirubin, Urine 2+ (Neg)
[2023-12-15 06:22] LABS: Red Blood Cells, Urine 0-2 /hpf (0-2); Squamous Epithelial Cells Few /hpf (Few); White Blood Cells, Urine 50-100 /hpf (0-5)
[2023-12-15 06:23] LABS: Bacteria Mod /hpf
--- NOTE | 2023-12-15 06:35 | NUR ---
TRANSFER TO ICU PT TRANSFERED FROM PCU TO ICU 6 AT 0515 D/T HYPOTENSION ALONG WITH A DROP IN HBG; PLAN TO INFUSE TWO UNITS OF PRBC. HE IS ORIENTED X4 BUT SELECTIVLY ANSWERS QUESTIONS; WILL CRY OUT IN PAIN VERY EASILY. SPO2 >97% ON RA. HR 80'S WITH SBP 80-90'S, LEVOPHED STARTED AT 2MCG/MIN D/T MAP <65. NO C/O NAUSEA, CHEST PAIN, PRESSURE OR LIGHT-HEADED. CONDOM CATH IN PLACE WITH SMALL AMOUNT OF URINE OUTPUT; SAMPLE SENT TO LAB. EXCORIATION NOTED TO COCCYX AND AROUND RECTUM. WAITING FOR BLOOD TO BE SENT FROM BLOOD BANK. WILL REPORT TO AM RN WHEN AVAILABLE.
[2023-12-15] MEDS ORDERED: Insulin Regular 100 UNIT/ML 10ML Vial SC SCH (07:30)
--- NOTE | 2023-12-15 08:53 | NUR ---
AM NOTE: PATIENT ALERT AND ORIENTED X4. FOLLOWING ALL COMMANDS. WEAKNESS NOTED THROUGHOUT. BEDREST AT THIS TIME. Q2 TURNING AND NEEDED. UPPER AND LOWER EXTREMITY NEUROPATHY. 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 PATIENT ABLE TO HELP TURN IN BED. TELE SHOWING 1ST DEGREE BLOCK WITH HR 60-80'S. DENIES CHEST PAIN/PRESSURE/PALPITATIONS. PPP. SBP 80-90'S. MAP 65-70'S. LEVOPHED INFUSING PER EMAR. 1ST UNIT OF BLOOD INFUSING AT THIS TIME. SCD TO RIGHT LOWER CALF. MINIMAL - MODERATE RIGHT PEDAL EDEMA. ON ROOM AIR SATING ABOVE 95%. DENIES SOB/COUGH. LUNGS SOUNDING CLEAR IN BILATERAL UPPER AND DIM IN BILATERAL LOWER LOBES. EVEN AND UNLABORED RESPIRATIONS. BOWEL TONES PRESENT IN ALL FOUR QUADRANTS. DENIES ABDOMINAL PAIN UPON PALPATION. ABDOMINAL ULTRASOUND RESULTS PENDING. PATIENT REPORTS INTERMIT NAUSEA WITH POOR APPEATITE. STATES HE HAS BEEN HAVING "BLACK STOOLS" AT HOME. UPON TURNING, ATTENDS CHANGE AND JASWANT CARE THIS AM PATIENT HAD SMALL BROWN SMEAR WHEN WIPING. REDNESS AND EXCORATIONS TO RECTUM, BARRIER CREAM AND MEPILEX APPLIED. NO SIGNS OF BLEEDING AT THIS TIME FROM RECTUM OR OTHER SOURCES. PATIENT DENIES BREAKFAST, DRINKING SIPS OF WATER WITH AM MEDS. ACHS BLOOD SUGAR CHECKS. CALL LIGHT IN REACH. PATIENT DENIES NEEDS AT THIS TIME.
[2023-12-15] MEDS ORDERED: Enoxaparin 40 MG/0.4 ML SYR SC SCH (09:00)
[2023-12-15] MEDS ORDERED: Lactobacil 2-S.Thermo-Bifido 1 1 Cap PO SCH (09:00)
--- NOTE | 2023-12-15 10:13 | NUR ---
PHYSICAL THERAPY IN ROOM TO ASSESS PATIENT, UP TO EDGE OF BED. PATIENT STATES "IT FELT GOOD TO MOVE AROUND". 2ND UNIT OF BLOOD TRANSFUSING. PATIENT OCCASIONALLY MOANING AND GROANING, ALTHOUGH DENIES PAIN. CALLED AND MESSAGE LEFT WITH PATIENT PERMISSION. LEVOPHED CONTINUES TO INFUSE SBP 80-90'S WITH MAPS 65-77.
--- NOTE | 2023-12-15 12:29 | NUR ---
DR. LUNSFORD BY FOR PROVIDER ROUNDING, THIS RN PRESENT AT BEDSIDE. ORDERS FOR H&H LAB DRAW AT 1400. LEVOPHED CONTINUES TO INFUSE INTO RIGHT AC IV THAT HAS POSITIVE BLOOD RETURN. PATIENT DENIES PAIN. CALL LIGHT IN REACH. SITTING UPRIGHT IN BED, WATCHING TV. DENIES NEEDS.
[2023-12-15 14:08] LABS: Hematocrit 27.2 % (37.0-53.0); Hemoglobin 8.9 g/dL (13.5-17.5)
[2023-12-15] MEDS ORDERED: Pantoprazole Sodium 40 MG Injection IV SCH (16:30)
--- NOTE | 2023-12-15 18:00 | NUR ---
SHIFT SUMMARY: PATIENT REMAINS ALERT AND ORIENTED. TELE CONTINUES TO SHOW SB-SR WITH 1ST DEGREE AV BLOCK. HR 50-80'S. SBP 80-90'S AT THIS TIME WITH MAPS TRENDING 60-70'S. LEVO CONTINUES TO INFUSE INTO RIGHT AC IV WITH POSITIVE BLOOD RETURN. 2 UNITS OF PACKED RED BLOOD CELLS INFUSED THIS SHIFT. PATIENT HAD 2 SMALL BROWN BOWEL MOVEMENTS, NO SIGNS OF RECTAL BLEEDING WITH BOWEL MOVEMENTS. PATIENT HAS HAD POOR APPEATITE WITH MINIMAL INTAKE. PATIENT ENCOURAGED TO DRINK WATER. CONDOM CATH IN PLACE, CONTINUES TO DRAIN MERLINE/BLOOD TINGED URINE, UA PENDING. CIWA SCORES 0-3. PATIENT VOCALIZED WANTING TO QUIT DRINKING. THIS RN EDUCATED ON CIWA PROTOCOL AND POSSIBLE WITHDRAWL SYMPTOMS/GENERAL EDUCATION. MERI TO BEDSIDE THIS SHIFT AND THIS RN PROVIDED UPDATE. PATIENT CONTINUES TO DENY PAIN. CURRENTLY SITTING UP IN BED WATCHING TV. CALL LIGHT IN REACH, DENIES NEEDS.
[2023-12-15] MEDS ORDERED: Folic Acid 1 MG in NS 50 ML IV SCH (21:00)
[2023-12-15] MEDS ORDERED: Thiamine HCl 100 MG in NS 50 ML IV SCH (21:00)
--- NOTE | 2023-12-15 22:39 | NUR ---
ASSUMED CARE AT 1900 PT IS LAYING IN BED AT SHIFT CHANGE. HIS CALLED AND THE CALL WAS TRANSFERED INTO THE ROOM AND HE WAS ABLE TO TALK TO HER. HE IS ORIENTED X4 BUT SELECTIVLY ANSWERS QUESTIONS; MORE TALKATIVE THAN THIS AM WHEN TRANSFERED OVER TO ICU; APPEARS UNCOMFORTABLE AND RESTLESS; CIWA 12, PRN LIBRIUM GIVEN AND NOW PT IS SLEEPING COMFORTABLY. SPO2 >96% ON RA. AFEBRILE. HR 50-70'S. SBP 90-100; MAP 65-75 WITH LEVOPHED INFUSING AT 1MCG/MIN. PT STATES HE HAS NO APPITITE AND ATTEMPTED TO EAT A SLICE OF BREAD AND ENDED UP SPITING IT OUT BECAUSE IT "TASTED BAD". CONDOM CATH IN PLACE WITH SMALL AMOUNT OF OUTPUT. EXCORIATION NOTED TO COCCYX AND AROUND RECTUM; MEPILEX AND CREAM APPLIED TO AREA. HE ATTEMPTS TO ASSIST WITH REPOSITIONING. SEE SHIFT ASSESSMENT FOR FULL ASSESSMENT.
[2023-12-16] VITALS (70 sets, daily range): BP systolic 78–145; BP diastolic 44–78
[2023-12-16 04:14] LABS: BASOPHILS ABSOLUTE AUTO 0.05 K/mm3 (0.00-0.23); BASOPHILS PERCENT AUTO 1 % (0-2); EOSINOPHILS ABSOLUTE AUTO 0.04 K/mm3 (0.00-0.68); EOSINOPHILS PERCENT AUTO 0 % (0-6); Hematocrit 26.3 % (37.0-53.0); Hemoglobin 8.6 g/dL (13.5-17.5); IMMATURE GRAN PERCENT AUTO 3 % (0-1); LYMPHOCYTES ABSOLUTE AUTO 1.07 K/mm3 (0.84-5.20); LYMPHOCYTES PERCENT AUTO 10 % (21-46); MONOCYTES ABSOLUTE AUTO 0.71 K/mm3 (0.16-1.47); MONOCYTES PERCENT AUTO 7 % (4-13); Mean Corpuscular HGB 31.3 pg (26.0-34.0); Mean Corpuscular HGB Conc 32.7 g/dL (31.5-36.5); NEUTROPHILS ABSOLUTE AUTO 8.42 K/mm3 (1.96-9.15); NEUTROPHILS PERCENT AUTO 80 % (41-73); Platelet Count 127 K/mm3 (150-400); RDW Coefficient Variation 20.9 % (11.7-14.2); Red Blood Cell Count 2.75 M/mm3 (4.30-5.90); White Blood Cell Count 10.59 K/mm3 (4.00-11.30)
[2023-12-16 04:15] LABS: Mean Corpuscular Volume 96 fL (80-100)
[2023-12-16 04:29] LABS: Albumin, Blood 1.4 g/dL (3.4-5.0); Albumin/Globulin Ratio 0.4 (0.8-1.8); Bilirubin, Total 3.3 mg/dL (0.1-1.0); Bun/Creatinine Ratio 10.3 (12.0-20.0); Calcium, Blood 7.4 mg/dL (8.5-10.1); Creatinine, Blood 0.78 mg/dL (0.60-1.20); Globulin, Blood 3.2 g/dL (2.2-4.0); Potassium, Blood 3.4 mmol/L (3.5-5.5); Total Protein, Blood 4.6 g/dL (6.4-8.2)
--- NOTE | 2023-12-16 06:45 | NUR ---
END OF SHIFT SUMMARY NO ACUTE EVENTS OVERNIGHT. HE CONT TO BE ORIENTED X4 AND CIWA'S RANGED FROM 2-13, LIBRIUM GIVEN TWICE AND HELPFUL BRINGING CIWA DOWN TO 2. SPO2 >98% ON RA. AFEBRILE. HR 50-60'S. SBP 90-100; LEVOPHED INFUSING AT 2MCG/MIN TO MAINTAIN MAP >65. CONT TO NOT HAVE AN APPETITE; NO BM THIS SHIFT. CONDOM CATH IN PLACE WITH 400ML MERLINE URINE. WILL REPORT TO AM RN WHEN AVAIABLE.
--- NOTE | 2023-12-16 06:49 | NUR ---
END OF SHIFT SUMMARY AROUND 0430 PT WOKE AGAIN WANTING TO COMMUNICATE WITH RN; PEN AND PAPER PROVIDED AND HE WROTE OUT "CALL RORY", HE WAS ABLE TO GRAB HIS PHONE AND CALL RORY INDEPENDENTLY. HIS SHOWED UP AROUND 0600 AND THE PT WAS UNHAPPY ABOUT THIS; HE WROTE DOWN "GET OUT!" AND "YOU TRIED TO KILL ME" AND "GET A GUN"; SHE LEFT SHORTLY AFTERWARDS. HE WAS COOPERATIVE WITH CARE AND APPROPRIATE WITH THIS RN; HE IS SEDATED WITH WITH PROPOFOL INFUSING AT 50MCG/KG/MIN AND PRECEDEX INFUSING AT 0.4MCG/KG/HR. VENT SETTINGS 28/320/7/40%; CHEST TUBE CONT TO BE TO WATER SEAL. AFEBRILE. HR 40-70'S. SBP 120-140'S. VHP INFUSING VIA OG AT GOAL OF 55ML/HR WITH 30ML FLUSHES Q2HR; RECTAL TUBE IN PLACE AND MODERATE AMOUNT OF OUTPUT. ROMAN IN PLACE AND DRAINING TO GRAVITY. WILL REPORT TO AM RN WHEN AVAILABLE.
--- NOTE | 2023-12-16 09:29 | NUR ---
AM NOTE: PATIENT IN A DEEP SLEEP UPON SHIFT START. WAKES TO TOUCH AND ABLE TO ANSWER ALL ORIENTING QUESTIONS. AT TIMES ODD/NONSENSICAL STATEMENTS MADE. SELECTIVE WITH RESPONDING TO QUESTIONS. MOVING ALL EXTREMITIES. ABLE TO TURN SELF IN BED. CHRONIC NEUROPATHY TO BILATERAL UPPER AND LOWER EXTREMITIES. PERRLA. DENIES HEADACHE/VISION CHANGES. TELE SHOWING SB-SR WITH 1ST DEGREE AV BLOCK. DENIES CHEST PAIN/PRESSURE/PALPITATIONS. LEVO INFUSING IN RIGHT AC UPON SHIFT START WITH POSITIVE BLOOD RETURN. MAPS TRENDING 67-90'S. LEVO RECENTLY PLACED ON STANDBY, SEE FLOW SHEET CHARTING. PPP. NO EDEMA NOTED. Q15 BLOOD PRESSURES. ON ROOM AIR, LUNGS SOUNDING CLEAR. SATING 95-100%. DENIES SOB/COUGH. EVEN AND UNLABORED RESPIRATIONS. BOWEL TONES PRESENT IN ALL 4 QUADRANTS. POOR APPETITE CONTINUES, PATIENT EATING ONE SAUSAGE FOR BREAKFAST. DENEIS ABDOMINAL PAIN/NAUSEA. DENIES PAIN WITH ABDOMINAL PALPATION. CONDOM CATH IN PLACE. ATTENDS IN PLACE. RECTUM EXCORIATED, BARRIER CREAM APPLIED. PATIENT TURNING SELF IN BED. SKIN OVERALL PALE/JAUNDICED WITH SOME SCATTERED BRUISING. SITTING UP IN BED AT THIS TIME WATCHING TV, DENIES NEEDS.
--- NOTE | 2023-12-16 10:18 | NUR ---
CALL PLACED TO DR. LUNSFORD BY THIS RN TO DISCUSS BLOOD PRESSURE AND MAPS. THIS RN DISCUSSED TITRATING PATIENT OFF OF LEVO, CURRENT BLOOD PRESSURES WITH SBP 80-90'S, MAPS TRENDING 60'S AND HR 40-50'S. PATIENT NONSYMPTOMATIC WITH LOW BLOOD PRESSURE AND I/O STATUS. ORDERS TO KEEP MAP ABOVE 60. NURSE NOTIFY ORDER IN PLACE. THIS RN ALSO DISCUSSED MORNING POTASSIUM LAB OF 3.4. ORDERS FOR POTASSIUM CHLORIDE 80 MEQ PO X1 DOSE NOW. ORDERS IN PLACE. DISPATCHER SERVICE OR WORK VASQUEZ UPDATED.
[2023-12-16] MEDS ORDERED: Potassium Chloride 20 MEQ TabCR PO SCH (10:20)
--- NOTE | 2023-12-16 11:09 | NUR ---
PATIENT REFUSED ORAL POTASSIUM. DR. LUNSFORD UPDATED. ORDERS FOR IV KCL 40 MEQ X1 DOSE NOW. ORDERS IN PLACE. PO POTASSIUM ORDER DISCONTINUED.
[2023-12-16] MEDS ORDERED: Potassium Chloride 40 MEQ in NS 250 ML IV ONE (11:10)
--- NOTE | 2023-12-16 13:52 | NUR ---
AT BEDSIDE AND UPDATED BY THIS RN.
--- NOTE | 2023-12-16 16:17 | NUR ---
DR. LUNSFORD BY FOR PROVIDER ROUNDING. THIS RN AT BEDSIDE. NO NEW ORDERS FOR THIS RN TO PLACE. GOAL MAP IS ABOVE 60. MAPS HAVE BEEN TRENDING MID 60'S. PATIENT NONSYMPTOMATIC WITH LOWER BLOOD PRESSURES. THIS RN DISCUSSED LACK OF EATING WITH DR. LUNSFORD AND OVERALL VITAL SIGN TRENDS.
--- NOTE | 2023-12-16 18:41 | NUR ---
SHIFT SUMMARY: PATIENT REMAINS ALERT AND ORIENTED. TURNING SELF IN BED. IN TO VISIT X2 THIS SHIFT. LEFT PROSTHESIS BROUGHT IN BY . SB-SR WITH 1ST DEGREE BLOCK. MAPS REMAIN ABOVE 60. LEVO REMAINS ON STANDBY. CONDOM CATH REMAINS IN PLACE. ONE BROWN SOFT BOWEL MOVEMENT THIS SHIFT. BED BATH GIVEN. REMAINS ON ROOM AIR. DENIES PAIN. SCD TO RIGHT CALF. CALL LIGHT IN REACH. DENIES NEEDS AT THIS TIME.
--- NOTE | 2023-12-16 23:27 | NUR ---
ASSUMED CARE AT 1900 PT IS SITTING UP WATCHING TV AT SHIFT CHANGE. DURING ASSESSMENT HE IS ALERT AND UPSET, YELLING AT THIS RN; HE STATES THAT HE "NEEDS TO KNOW WHAT HE WAS TOLD TO DON ON SUNDAY" AND WAS UPSET THAT NO ONE WAS TELLING HIM; SLOWLY HE WAS ABLE TO CALM DOWN AFTER REORIENTING AND CLARIFIYING INFORMATION; CIWA 8 D/T ANXIETY, AGITATION, AND "FEELING SHAKY"; PRN LIBRIUM GIVEN. SPO2 >98% ON RA. AFEBRILE. HR 50'S. SBP 90'S WITH MAP 60-70; LEVOPHED OFF. CONT TO HAVE POOR APPETITE. CONDOM CATH IN PLACE AND DRAINING TO GRAVITY. POWERGLIDE TO RUE PATENT WITH DRESSING C/D/I. SEE SHIFT ASSESSMENT FOR FULL ASSESSMENT.
[2023-12-17] VITALS (22 sets, daily range): BP systolic 81–124; BP diastolic 51–110
[2023-12-17 00:21] LABS: HAPTOGLOBIN 127 mg/dL (30-200)
[2023-12-17 04:46] LABS: BASOPHILS ABSOLUTE AUTO 0.03 K/mm3 (0.00-0.23); BASOPHILS PERCENT AUTO 0 % (0-2); EOSINOPHILS ABSOLUTE AUTO 0.04 K/mm3 (0.00-0.68); EOSINOPHILS PERCENT AUTO 1 % (0-6); Hematocrit 27.1 % (37.0-53.0); Hemoglobin 8.7 g/dL (13.5-17.5); IMMATURE GRAN ABSOLUTE AUTO 0.17 K/mm3 (0.00-0.10); IMMATURE GRAN PERCENT AUTO 2 % (0-1); LYMPHOCYTES ABSOLUTE AUTO 0.95 K/mm3 (0.84-5.20); LYMPHOCYTES PERCENT AUTO 13 % (21-46); MONOCYTES ABSOLUTE AUTO 0.47 K/mm3 (0.16-1.47); MONOCYTES PERCENT AUTO 6 % (4-13); Mean Corpuscular HGB 30.7 pg (26.0-34.0); Mean Corpuscular HGB Conc 32.1 g/dL (31.5-36.5); Mean Corpuscular Volume 96 fL (80-100); Mean Platelet Volume 10.1 fL (9.1-12.4); NEUTROPHILS ABSOLUTE AUTO 5.82 K/mm3 (1.96-9.15); NEUTROPHILS PERCENT AUTO 78 % (41-73); Platelet Count 106 K/mm3 (150-400); RDW Coefficient Variation 19.9 % (11.7-14.2); RDW Standard Deviation 67.8 fL (35.1-46.3); Red Blood Cell Count 2.83 M/mm3 (4.30-5.90); White Blood Cell Count 7.48 K/mm3 (4.00-11.30)
[2023-12-17 05:05] LABS: Albumin, Blood 1.3 g/dL (3.4-5.0); Albumin/Globulin Ratio 0.4 (0.8-1.8); Bilirubin, Total 2.8 mg/dL (0.1-1.0); Calcium, Blood 7.4 mg/dL (8.5-10.1); Creatinine, Blood 0.78 mg/dL (0.60-1.20); Globulin, Blood 3.2 g/dL (2.2-4.0); Potassium, Blood 3.8 mmol/L (3.5-5.5); Total Protein, Blood 4.5 g/dL (6.4-8.2)
--- NOTE | 2023-12-17 06:19 | NUR ---
END OF SHIFT SUMMARY NO ACUTE EVENTS OVERNIGHT. HE WAS MORE PLEASENT THE NIGHT WENT ON BUT DID NOT SLEEP FOR MORE THAN 2-3 HOURS. LIBRIUM GIVEN ONCE AND HELPFUL BRINGING CIWA FROM 8 TO 2. SPO2 >98% ON RA. AFEBRILE. HR 50-60'S. SBP 80-90'S WITH MAP >GOAL OF 60; NO LEVOPHED ALL NIGHT. CONT TO HAVE POOR APPETITE, HE WAS ABLE TO EAT A HALF A CUP OF PEACHES BEFORE TAKING A NAP. CONDOM CATH IN PLACE AND DRAINING TO GRAVITY. POWERGLIDE TO RUE PATENT WITH DRESSING C/D/I. WILL REPORT TO AM RN WHEN AVAILABLE.
--- NOTE | 2023-12-17 09:15 | NUR ---
ASSUMED CARE: REPORT RECEIVED FROM GORDO Mercedes RN. ASSUMED CARE OF THIS PT AT APPROX 0700. ON ASSESSMENT, THE PT IS A&O TO SELF, FOLLOWS DIRECTIONS. IS OCCASIONALLY CONFUSED, MAKING NONSENSICAL STATEMENTS OR CHOOSING NOT TO ANSWER/ PARTICIPATE W/ STAFF. LS CLEAR, PT ON RA W/ O2 SATS > 92%. MONITOR SHOWS SB-SR W/ HR 40-60s, HYPOTENSIVE W/ MIDODRINE PER EMAR. MAP GOAL > 60. PT REFUSING MEALS AT THIS TIME, STS HAVING NO APPETITE. CONDOM CATH IN PLACE W/ DARK YELLOW-MERLINE URINE NOTED IN OUTPUT BAG. ATTENDS IN PLACE FOR INCONTINENCE OF STL. SKIN OVERALL INTACT, PT REPOSITIONS SELF PRN FOR COMFORT. WILL CONTINUE TO MONITOR & UPDATE NEEDED.
--- NOTE | 2023-12-17 09:40 | NUR ---
DR SALAS: PROVIDER AT BEDSIDE THIS AM TO EVAL PT. DISCUSSED CONTINUED LOW CIWA SCORES & IMPROVED BP READINGS W/ MIDODRINE PER EMAR. HE HAS ORDERED THE PT TO BE MEDICAL STATUS W/ TELE. NO OTHER CHANGES AT THIS TIME.
[2023-12-17 11:51] LABS: HEPATITIS A ANTIBODY, IGM Negative (Negative); HEPATITIS B CORE ANTIBODY, IGM Negative (Negative); HEPATITIS B SURFACE ANTIGEN Negative (Negative); HEPATITIS C AB CIA INTERP Negative (Negative); HEPATITIS C ANTIBODY CIA INDEX <0.02 IV
--- NOTE | 2023-12-17 13:25 | NUR ---
TRANSFER TO MEDICAL FLOOR / UPDATE: REPORT HAS BEEN GIVEN TO PIYUSH CHAVEZ TO ASSUME CARE. PT TRANSFERRED TO ROOM 308 VIA BED BY [facility], AT APPROX 1335. ALL BELONGINGS & CHART HAVE BEEN TAKEN W/ PT AT THAT TIME. THIS RN HAS RECEIVED A CALL FROM LAB W/ CONCERNS THAT THE PT's A1C HAS RESULTED AT 3.3 WHEN PRIOR A1C READINGS HAVE BEEN ELEVATED. THIS RN HAS NOTIFIED LAB THAT THIS IS LIKELY A TRUE READING R/T PT's MALNUTRITION AT HOME PRIOR TO ADMISSION & LOW-NORMAL CBG READINGS DURING ADMISSION. THIS RN HAS NOTIFIED DR SALAS THAT THE PT's A1C IS LOW & HE FEELS THAT THIS IS AN ACCURATE READING WELL. LAB HAS ALSO NOTIFIED THIS RN THAT A1C WILL READ "<3.5" IN [employer].
--- NOTE | 2023-12-17 14:14 | NUR ---
Received pt transfer at 1405 via hospital bed. Awake and alert x3. Denies pain. VSS. Resp even nonlabored on RA. BM prior to arrival. Condom cath in place. Redness to inner buttocks with barrier cream noted. Repositioned for comfort. Oriented pt to room and call light. No c/o verbalized at this time.
--- NOTE | 2023-12-17 14:30 | NUR ---
Introductory conversation with patent and regarding advance directives. Will return to review again with them. Pt stated that they have spoke to them in the clinic.
--- NOTE | 2023-12-17 18:34 | NUR ---
Pt remains calm this shift. No s/sx of alcohol wd. VSS. SB in the 50s, pt asymptomatic. Feeding self dinner. Pain and safety maintained. Will continue to follow.
--- NOTE | 2023-12-17 20:17 | NUR ---
AGITATED, CIWA SCORE 15, THREATS VOICED TO STAFF. ADMINISTERED 2 MG OF ATIVAN PER MD TOVAR. ENCOURAGED PT TO CALM AND COMPLY WITH TREATMENT FOR HIS HEALTH IMPROVEMENT. CALL LIGHT IN REACH. WILL MONITOR
--- NOTE | 2023-12-17 23:27 | NUR ---
CIWA AT HS WAS 15. QUITE AGITATED, PULLED OFF CONDOM CATH AND WAS CONFRONTATIONAL WITH STAFF. RECEIVED 2 MGS OF ATIVAN IV. PT CALMED DOWN. NOW CIWA 0. BP WNL (WAS ELEVATED EARLIER). CALL LIGHT IN REACH. WILL CONTINUE TO MONITOR
--- NOTE | 2023-12-18 02:43 | NUR ---
RESTING QUIETLY. NO NOTED ACUTE PHYSICAL DISTRESS. RESPS EVEN. CALL LIGHT IN REACH
--- NOTE | 2023-12-18 03:03 | NUR ---
RESEARCH LIBRARIAN SUMMARY BP FLUCTUATING UP AND DOWN - LAST TAKEN VSS. DETOXING FROM ETOH. CIWA SCORE AT 1999 WAS 15, QUITE ANXIOUS AND AGITATED. RECEIVED IV ATIVAN AND HAS BEEN RSETING QUIETLY WITH FEW INTERRUPTIONS SINCE. RECEIVING ANTIBIOTICS AND B VITAMINS IV. ASPIRATION AND FALL PRECAUTIONS MAINTAINED. MED TELE SB AT 56. NO NOTED ACUTE DISTRESS THROUGH SHIFT AFTER ATIVAN ADMIN. CALL LIGHT IN REACH, RAILS UP X 2 FOR SAFETY. BED IN LOW POSITION. ABLE TO REPOSITION SELF IN BED WITHOUT ASSIST. WILL CONTINUE TO MONITOR.
[2023-12-18 04:17] VITALS: BP 133/119
[2023-12-18 05:34] LABS: BASOPHILS ABSOLUTE AUTO 0.05 K/mm3 (0.00-0.23); BASOPHILS PERCENT AUTO 1 % (0-2); EOSINOPHILS ABSOLUTE AUTO 0.05 K/mm3 (0.00-0.68); EOSINOPHILS PERCENT AUTO 1 % (0-6); Hematocrit 27.9 % (37.0-53.0); Hemoglobin 8.9 g/dL (13.5-17.5); IMMATURE GRAN ABSOLUTE AUTO 0.13 K/mm3 (0.00-0.10); IMMATURE GRAN PERCENT AUTO 2 % (0-1); LYMPHOCYTES ABSOLUTE AUTO 0.85 K/mm3 (0.84-5.20); LYMPHOCYTES PERCENT AUTO 14 % (21-46); MONOCYTES ABSOLUTE AUTO 0.41 K/mm3 (0.16-1.47); MONOCYTES PERCENT AUTO 7 % (4-13); Mean Corpuscular HGB 30.9 pg (26.0-34.0); Mean Corpuscular HGB Conc 31.9 g/dL (31.5-36.5); Mean Corpuscular Volume 97 fL (80-100); Mean Platelet Volume 10.5 fL (9.1-12.4); NEUTROPHILS ABSOLUTE AUTO 4.82 K/mm3 (1.96-9.15); NEUTROPHILS PERCENT AUTO 76 % (41-73); Platelet Count 93 K/mm3 (150-400); RDW Coefficient Variation 19.9 % (11.7-14.2); RDW Standard Deviation 69.7 fL (35.1-46.3); Red Blood Cell Count 2.88 M/mm3 (4.30-5.90); White Blood Cell Count 6.31 K/mm3 (4.00-11.30)
[2023-12-18 06:01] LABS: Albumin, Blood 1.3 g/dL (3.4-5.0); Albumin/Globulin Ratio 0.4 (0.8-1.8); Bilirubin, Total 2.5 mg/dL (0.1-1.0); Bun/Creatinine Ratio 8.7 (12.0-20.0); Calcium, Blood 7.5 mg/dL (8.5-10.1); Creatinine, Blood 0.81 mg/dL (0.60-1.20); Globulin, Blood 3.1 g/dL (2.2-4.0); Magnesium, Blood 1.5 mg/dL (1.6-2.4); Phosphorus, Blood 2.5 mg/dL (2.5-4.9); Potassium, Blood 3.9 mmol/L (3.5-5.5); Total Protein, Blood 4.4 g/dL (6.4-8.2)
[2023-12-18 07:29] VITALS: BP 81/59
[2023-12-18 07:31] VITALS: BP 86/67
--- NOTE | 2023-12-18 08:59 | NUR ---
PATIENT SPAT ALL PO MEDICATIONS OUIT OF HIS MOUTH AND REFUSED TO TAKE ANYTHING. WILL LET THE PROVIDER KNOW AND OFFER PT THE MEDICATIONS AGAIN LATER.
[2023-12-18] MEDS ORDERED: Multivitamins-Minerals Liquid 15 ML Oral Syringe PO SCH (09:00)
[2023-12-18] MEDS ORDERED: Folic Acid 1 MG TAB PO SCH (09:00)
[2023-12-18] MEDS ORDERED: Thiamine HCl 100 MG Tab PO SCH (09:00)
[2023-12-18 12:31] VITALS: BP 89/61
--- NOTE | 2023-12-18 12:41 | NUR ---
PT'S CBG WAS 66. HE DRANK A FEW SIPS OF OJ AND A BITE OF ICE CREAM. CBG INCREASED TO 70, HOWEVER PATIENT DOES NOT HAVE A GOOD APPETITE. WILL RECHECK CBG AFTER LUNCH. LEFT VOICEMAIL WITH PROVIDER REGARDING LOW BLOOD SUGAR AND HYPOTENSION/REFUSAL TO TAKE MIDODRINE THIS AM AND NOON DOSE.
--- NOTE | 2023-12-18 13:14 | NUR ---
Pt uset about being in hospital. Stating his made him get care. We dicussed his care and his options to go home. He will stay for now. He does not want to go back to ICU or be put on life support. He wants to discuss it more when comes.
[2023-12-18 15:23] VITALS: BP 100/63
--- NOTE | 2023-12-18 15:52 | NUR ---
SHIFT SUMMARY PATIENT ORIENTED TO SELF. CONFUSED AND UNAWARE OF BEING AT THE HOSPITAL. REFUSED MEDICATIONS THIS MORNING. CBG LEVELS LOW T/O SHIFT. DECREASED APPETITE. SOFT BP T/O SHIFT. SPOKE WITH PROVIDER WHO NOTED THAT PALLIATIVE CARE WILL BE FOLLOWING UP WITH PATIENT AND HIS . TELE DISCONTINUED. PATIENT COMPLAINS OF A DULL HEADACHE. WILL MEDICATE PER EMAR. DENIES CP/PRESSURE, DIZZINESS, OR SOB. FREQUENTLY YELLS OUT AND VERBALIZES NONSENSICAL IDEAS. PATIENT IS CURRENTLY RESTING IN BED. BED ALARM ON AND IN THE LOWEST POSITION. CALL LIGHT WITHIN REACH.
[2023-12-18] MEDS ORDERED: Pantoprazole Sodium 20 MG Tab PO SCH (16:30)
[2023-12-18] MEDS ORDERED: MIRT15 PO (19:13)
[2023-12-18 20:16] VITALS: BP 124/113
[2023-12-18] MEDS ORDERED: Amoxicillin/Clavulanate K 875 MG Tab PO SCH (21:00)
[2023-12-19 03:17] VITALS: BP 90/54
[2023-12-19 05:12] VITALS: BP 103/65
[2023-12-19 06:29] LABS: BASOPHILS ABSOLUTE AUTO 0.04 K/mm3 (0.00-0.23); BASOPHILS PERCENT AUTO 1 % (0-2); EOSINOPHILS ABSOLUTE AUTO 0.05 K/mm3 (0.00-0.68); EOSINOPHILS PERCENT AUTO 1 % (0-6); Hematocrit 28.2 % (37.0-53.0); IMMATURE GRAN ABSOLUTE AUTO 0.06 K/mm3 (0.00-0.10); IMMATURE GRAN PERCENT AUTO 1 % (0-1); LYMPHOCYTES ABSOLUTE AUTO 0.89 K/mm3 (0.84-5.20); LYMPHOCYTES PERCENT AUTO 14 % (21-46); MONOCYTES ABSOLUTE AUTO 0.38 K/mm3 (0.16-1.47); MONOCYTES PERCENT AUTO 6 % (4-13); Mean Corpuscular HGB 31.6 pg (26.0-34.0); Mean Corpuscular HGB Conc 31.9 g/dL (31.5-36.5); Mean Corpuscular Volume 99 fL (80-100); Mean Platelet Volume 10.5 fL (9.1-12.4); NEUTROPHILS ABSOLUTE AUTO 4.81 K/mm3 (1.96-9.15); NEUTROPHILS PERCENT AUTO 77 % (41-73); Platelet Count 83 K/mm3 (150-400); RDW Coefficient Variation 19.2 % (11.7-14.2); RDW Standard Deviation 69.1 fL (35.1-46.3); Red Blood Cell Count 2.85 M/mm3 (4.30-5.90); White Blood Cell Count 6.23 K/mm3 (4.00-11.30)
[2023-12-19 07:12] LABS: Albumin, Blood 1.4 g/dL (3.4-5.0); Albumin/Globulin Ratio 0.4 (0.8-1.8); Bilirubin, Total 2.8 mg/dL (0.1-1.0); Bun/Creatinine Ratio 8.9 (12.0-20.0); C-REACTIVE PROTEIN, EXT RANGE 2.95 mg/dL (0.000-0.300); Calcium, Blood 7.6 mg/dL (8.5-10.1); Creatinine, Blood 0.79 mg/dL (0.60-1.20); Globulin, Blood 3.3 g/dL (2.2-4.0); Potassium, Blood 3.4 mmol/L (3.5-5.5); Thyroid Stimulating Hormone 8.45 uIU/mL (0.360-4.800); Total Protein, Blood 4.7 g/dL (6.4-8.2)
[2023-12-19 07:42] VITALS: BP 92/66
[2023-12-19 15:21] VITALS: BP 112/66
[2023-12-19] MEDS ORDERED: Potassium Chloride 10 Meq Tablet SA PO SCH (17:00)
--- NOTE | 2023-12-19 17:41 | NUR ---
SHIFT SUMMARY PATIENT ALERT BUT CONFUSED. PATIENT HALLUCINATING AT TIMES. ASKING FOR HIS 4 SUITCASES THAT HE FILLED WITH COMPOST. PATIENT POINTING AT GARBAGE CAN. ATTEMPTED TO REORIENT PATIENT, PATIENT IRRITABLE WITH STAFF. PATIENT MAKING MULTIPLE ATTEMPTS TO CLIMB OUT OF BED. PATIENT BELOW THE KNEE AMPUTATION ON THE L. PATIENT LIFTED TO CHAIR BECAUSE PATIENT UNABLE TO STAND. PATIENT CONTINUES TO BE CONFUSED. PATIENT MEDICATED WITH LIBRIUM FOR HALLUCINATIONS WITH GOOD EFFECT.
[2023-12-19 19:18] VITALS: BP 98/55
[2023-12-20 03:01] VITALS: BP 96/68
[2023-12-20] MEDS ORDERED: Levothyroxine Sodium 0.025 MG Tab PO SCH (06:00)
[2023-12-20 07:22] VITALS: BP 94/56
[2023-12-20 15:33] VITALS: BP 102/62
--- NOTE | 2023-12-20 16:54 | NUR ---
SHIFT SUMMARY: PATIENT IS ALERT AND ORIENTED TO SELF AND PLACE. HE WAX AND WAINS FROM PLEASANT/COOPERATIVE TO UNPLEASANT AND NON COOPERATIVE. HE DOES TAKE HIS MEDICATIONS. HIS ORAL INTAKE IS POOR. STATES THAT HE ISN'T HUNGRY. PATIENT IS UNWILLING TO GET OUT OF BED, HE IS INCONTIENT OF BOTH URINE AND STOOL. HE STATES THAT HE ISN'T AWARE THAT HE HAS BEEN INCONTIENT. HE IS IN BED, BED ALARM ON, DOESN'T USE HIS CALL LIGHT/YELLS OUT, HE IS ALERT, NO SIGNS OR SYMPTOMS OF DISTRESS, AWAITING PLACEMENT, PLAN OF CARE ONGOING.
[2023-12-20 19:30] VITALS: BP 95/80
[2023-12-21 03:07] VITALS: BP 103/67
[2023-12-21 05:34] LABS: BASOPHILS ABSOLUTE AUTO 0.04 K/mm3 (0.00-0.23); BASOPHILS PERCENT AUTO 1 % (0-2); EOSINOPHILS ABSOLUTE AUTO 0.05 K/mm3 (0.00-0.68); EOSINOPHILS PERCENT AUTO 1 % (0-6); Hematocrit 28.6 % (37.0-53.0); Hemoglobin 8.8 g/dL (13.5-17.5); IMMATURE GRAN ABSOLUTE AUTO 0.05 K/mm3 (0.00-0.10); IMMATURE GRAN PERCENT AUTO 1 % (0-1); LYMPHOCYTES ABSOLUTE AUTO 1.04 K/mm3 (0.84-5.20); LYMPHOCYTES PERCENT AUTO 19 % (21-46); MONOCYTES ABSOLUTE AUTO 0.48 K/mm3 (0.16-1.47); MONOCYTES PERCENT AUTO 9 % (4-13); Mean Corpuscular HGB 31.7 pg (26.0-34.0); Mean Corpuscular HGB Conc 30.8 g/dL (31.5-36.5); Mean Corpuscular Volume 103 fL (80-100); Mean Platelet Volume 10.5 fL (9.1-12.4); NEUTROPHILS ABSOLUTE AUTO 3.87 K/mm3 (1.96-9.15); NEUTROPHILS PERCENT AUTO 70 % (41-73); Platelet Count 59 K/mm3 (150-400); RDW Standard Deviation 67.7 fL (35.1-46.3); Red Blood Cell Count 2.78 M/mm3 (4.30-5.90); White Blood Cell Count 5.53 K/mm3 (4.00-11.30)
[2023-12-21 05:56] LABS: Albumin, Blood 1.3 g/dL (3.4-5.0); Albumin/Globulin Ratio 0.4 (0.8-1.8); Bilirubin, Total 2.4 mg/dL (0.1-1.0); Bun/Creatinine Ratio 7.9 (12.0-20.0); Calcium, Blood 7.7 mg/dL (8.5-10.1); Creatinine, Blood 0.76 mg/dL (0.60-1.20); Magnesium, Blood 1.5 mg/dL (1.6-2.4); Phosphorus, Blood 2.3 mg/dL (2.5-4.9); Potassium, Blood 3.5 mmol/L (3.5-5.5); Total Protein, Blood 4.3 g/dL (6.4-8.2)
[2023-12-21 07:16] VITALS: BP 93/66
[2023-12-21] MEDS ORDERED: LORazepam 2 MG/ML 1ML Injection IV PRN (09:10)
[2023-12-21] MEDS ORDERED: Dextrose 50% 50 ML Syringe IV ONE (09:10)
[2023-12-21] MEDS ORDERED: Dextrose 5% 250 ML IV ONE (09:15)
[2023-12-21 13:41] VITALS: BP 88/62
--- NOTE | 2023-12-21 15:50 | NUR ---
SHIFT SUMMARY MR CALI IS ABLE TO ANSWER ORIENTATION QUESTIONS APPROPRIATELY. HE WAS DESCRIBING HEARING VOICES IN HIS ROOM EARLIER TODAY AND SHOUTING OUT AT THE VOICES. HE CALMED FOR A WHILE THEN RECEIVED ATIVAN IV TO HELP HIM TO RELAX AND HAS BEEN QUIET SINCE. HE HAS REFUSED TO EAT OR DRINK MORE THAN A FEW SIPS OR A BITE OR TWO TODAY. HIS BLOOD GLUCOSE WAS LOW AT 69 THIS MORNING BUT HE SAID HE WOULD RATHER THAN EAT/DRINK AND WAS GIVEN D5 250CC IV. HE SAID THAT HE HAS SOME BEER WAITING FOR HIM AT HOME THAT HE WILL DRINK. HE SAID THAT HE KNOWS HE'S SICK BECAUSE HE DRINKS ALCOHOL. BED LOW, CALL LIGHT IN REACH, BED ALARM ON.
[2023-12-21 15:57] VITALS: BP 105/64
--- NOTE | 2023-12-21 16:27 | NUR ---
MD CALL DR DANIELLE NOTIFIED OF BLOOD GLUCOSE 77, POOR PO INTAKE AND PT SAYING HE'S RATHER THAN EAT. TELEPHONE ORDER FOR D5NS AT 125CC/HR READ BACK AND ENTERED INTO [employer].
[2023-12-21] MEDS ORDERED: D5W-NS 1,000 ML IV SCH (16:30)
[2023-12-21 19:26] VITALS: BP 98/52
[2023-12-21] MEDS ORDERED: Mirtazapine 15 MG SoluTab PO SCH (21:00)
--- NOTE | 2023-12-21 21:41 | NUR ---
patient agitation increased this pm, patient stated "leave me the fuck alone" patient refused to have linen and dirty attends changed, medicated with ativan with try again, patient repositioning self in bed
[2023-12-22 03:32] VITALS: BP 108/65
--- NOTE | 2023-12-22 04:59 | NUR ---
PATIENT RESISTENT TO CARE, REFUSES TO BE REPOTIONED FOR SHEETS CHANGED, NEW ATTENDS IN PLACE, PATIENT INCONTINENT OF BOWEL AND BLADDER, BECOMES MORE AGITATED THE MORE INTERVENTIONS DONE AT ONE TIME, MEDICATED WITH REMERON AND ATIVAN, PATIENT SATURATING ATTENDS, D5NS AT 125, ;ABS TO BE DRAWN THIS AM, CALL LIGHT WITH IN REACH, MOANS OUT, ALERT AND ORIENTED TO SELF ONLY, NOT IMPULSIVE, WILL RELAY TO AM RN
[2023-12-22 08:18] VITALS: BP 92/73
[2023-12-22 10:12] LABS: BASOPHILS ABSOLUTE AUTO 0.05 K/mm3 (0.00-0.23); BASOPHILS PERCENT AUTO 1 % (0-2); EOSINOPHILS ABSOLUTE AUTO 0.17 K/mm3 (0.00-0.68); EOSINOPHILS PERCENT AUTO 3 % (0-6); Hematocrit 33.6 % (37.0-53.0); Hemoglobin 10.6 g/dL (13.5-17.5); IMMATURE GRAN ABSOLUTE AUTO 0.07 K/mm3 (0.00-0.10); IMMATURE GRAN PERCENT AUTO 1 % (0-1); LYMPHOCYTES ABSOLUTE AUTO 1.32 K/mm3 (0.84-5.20); LYMPHOCYTES PERCENT AUTO 24 % (21-46); MONOCYTES ABSOLUTE AUTO 0.44 K/mm3 (0.16-1.47); MONOCYTES PERCENT AUTO 8 % (4-13); Mean Corpuscular HGB 31.1 pg (26.0-34.0); Mean Corpuscular HGB Conc 31.5 g/dL (31.5-36.5); Mean Corpuscular Volume 99 fL (80-100); NEUTROPHILS ABSOLUTE AUTO 3.37 K/mm3 (1.96-9.15); NEUTROPHILS PERCENT AUTO 62 % (41-73); RDW Standard Deviation 65.3 fL (35.1-46.3); Red Blood Cell Count 3.41 M/mm3 (4.30-5.90); White Blood Cell Count 5.42 K/mm3 (4.00-11.30)
[2023-12-22 10:40] LABS: Albumin, Blood 1.5 g/dL (3.4-5.0); Albumin/Globulin Ratio 0.4 (0.8-1.8); Bilirubin, Total 2.2 mg/dL (0.1-1.0); Bun/Creatinine Ratio 5.9 (12.0-20.0); Calcium, Blood 7.5 mg/dL (8.5-10.1); Creatinine, Blood 0.68 mg/dL (0.60-1.20); Globulin, Blood 3.4 g/dL (2.2-4.0); Potassium, Blood 3.3 mmol/L (3.5-5.5); Total Protein, Blood 4.9 g/dL (6.4-8.2)
[2023-12-22 10:42] LABS: Platelet Count 51 K/mm3 (150-400)
[2023-12-22] MEDS ORDERED: Guaifenesin/Dextromethorphan Syrup 5 ML UDC PO PRN (12:50)
[2023-12-22] MEDS ORDERED: Benzonatate 100 MG Cap PO PRN (12:50)
[2023-12-22] MEDS ORDERED: Potassium Chloride 20 MEQ TabCR PO SCH (13:00)
[2023-12-22 13:52] VITALS: BP 98/61
--- NOTE | 2023-12-22 15:11 | NUR ---
SHIFT SUMMARY MR CALI HAS BEEN CALM. HE DENIES HEARING ANY VOICES TODAY. HE HAS TOLERATED A SMALL VOLUME OF PO FLUIDS AND NO FOOD. HE HAS VARIED RESPONSES TO WHY HE IS NOT EATING; HE IS TOO TIRED TO EAT, HE DOESN'T WANT TO LIVE, NOTHING TASTES GOOD. HE WAS OFFERED A VARIETY OF DIFFERENT OPTIONS. IVF INFUSING. HE DID NOT WANT TO GET UP OUT OF BED, OFFERED A LIFT TO THE CHAIR AND DECLINED. HIS VISITED EARLIER. BED LOW, CALL LIGHT IN REACH, BED ALARM ON.
[2023-12-22 17:43] VITALS: BP 94/62
[2023-12-22 19:28] VITALS: BP 95/76
[2023-12-23 04:25] VITALS: BP 99/62
--- NOTE | 2023-12-23 05:45 | NUR ---
NO ACUTE CHANGES, MEDICATED ONCE WITH ATIVAN, PATIENT YELLING OUT FOR HIS MOM, PATIENT REDIRECTED, SHORT TERM MEMORY PROBLEMS, REINFORCED PABLO PG DRESSING, PATIENT CONITNUES TO PULL AT THE PG LINE, SNORING PRESENTLY, LAB BLOOD DRAWN, BED ALARM ON, WILL RELAY TO AM RN
[2023-12-23 06:08] LABS: Albumin, Blood 1.3 g/dL (3.4-5.0); Albumin/Globulin Ratio 0.4 (0.8-1.8); Bun/Creatinine Ratio 5.8 (12.0-20.0); Calcium, Blood 7.2 mg/dL (8.5-10.1); Creatinine, Blood 0.69 mg/dL (0.60-1.20); Globulin, Blood 3.1 g/dL (2.2-4.0); Potassium, Blood 3.5 mmol/L (3.5-5.5); Total Protein, Blood 4.4 g/dL (6.4-8.2)
[2023-12-23 06:09] LABS: BASOPHILS ABSOLUTE AUTO 0.04 K/mm3 (0.00-0.23); BASOPHILS PERCENT AUTO 1 % (0-2); EOSINOPHILS ABSOLUTE AUTO 0.14 K/mm3 (0.00-0.68); EOSINOPHILS PERCENT AUTO 3 % (0-6); Hematocrit 28.7 % (37.0-53.0); Hemoglobin 8.9 g/dL (13.5-17.5); IMMATURE GRAN ABSOLUTE AUTO 0.04 K/mm3 (0.00-0.10); IMMATURE GRAN PERCENT AUTO 1 % (0-1); LYMPHOCYTES ABSOLUTE AUTO 1.11 K/mm3 (0.84-5.20); LYMPHOCYTES PERCENT AUTO 22 % (21-46); MONOCYTES PERCENT AUTO 8 % (4-13); Mean Corpuscular HGB 31.4 pg (26.0-34.0); Mean Corpuscular Volume 101 fL (80-100); Mean Platelet Volume 10.5 fL (9.1-12.4); NEUTROPHILS ABSOLUTE AUTO 3.25 K/mm3 (1.96-9.15); NEUTROPHILS PERCENT AUTO 65 % (41-73); Platelet Count 61 K/mm3 (150-400); RDW Coefficient Variation 17.9 % (11.7-14.2); RDW Standard Deviation 66.4 fL (35.1-46.3); Red Blood Cell Count 2.83 M/mm3 (4.30-5.90); White Blood Cell Count 4.98 K/mm3 (4.00-11.30)
[2023-12-23 07:24] VITALS: BP 105/61
[2023-12-23 13:12] VITALS: BP 107/67
--- NOTE | 2023-12-23 15:43 | NUR ---
SHIFT SUMMARY MR CALI HAS BEEN CALM, NO SHOUTING OUT THIS SHIFT. HE IS ORIENTATED TO SELF, PLACE AND SITUATION, NOT DATE. HE HAS DRANK 375CC WATER AND PART OF A MILKSHAKE THIS MORNING, WHICH IS MORE THAN HE HAS BEEN DRINKING THE LAST COUPLE OF DAY SHIFTS. HE STILL DECLINES ALL FOOD. HE HAS BEEN TAKING ORAL MEDICATIONS. HE TALKED TO HIS ON THE PHONE FOR A WHILE. HE HAS HAD 2 LARGE INCONTINENT LOOSE STOOL AND URINE. HE SAID HE KNOWS WHEN HE NEEDS TO VOID/STOOL BUT THEN GAVE CONFUSED ANSWERS TO WHY HE'S NOT USING URINAL/BEDPAN. HE WAS OFFERED LIFT ASSISTANCE TO A RECLINER/TOILET BUT REFUSED ABSOLUTELY. TURNED AND REPOSITIONED Q2HRS. MEPILEX APPLIED TO RED AREA ON COCCYX AND HE HAS MOSTLY BEEN TURNING SIDE TO SIDE OFF HIS BACK. BED LOW, CALL LIGHT IN REACH. BED ALARM ON.
[2023-12-23 15:45] VITALS: BP 124/92
[2023-12-23 17:42] VITALS: BP 108/68
[2023-12-23 19:21] VITALS: BP 91/63
[2023-12-24 03:25] VITALS: BP 105/90
--- NOTE | 2023-12-24 05:42 | NUR ---
SHIFT SUMMARY PT IS ALERT AND ORIENTED TO SELF AND PLACE. PT RECEIVED MEDICATION PER EMAR. PT ACCIDENTALLY PULLED OUT POWERGLIDE, CATHETER WAS INTACT. NEW IV PLACED BY MARGARET KEENAN RN. VSS, NO COMPLAINTS OF CP OR SOB. PT SPENT MOST OF SHIFT RESTIG IN BED WITH EYES CLOSED AND RESPIRATIONS EVEN AND UNLABORED, OCCASIONALLY CALLS OUT FOR HIS MOM. PT HAS D5NS RUNNING CURRENTLY THROUGH IV. NO ACUTE EVENTS AT THIS TIME. APPROPRIATE FALL PRECAUTIONS IN PLACE PER POLICY. CALL LIGHT IN REACH.
[2023-12-24 05:43] LABS: BASOPHILS ABSOLUTE AUTO 0.06 K/mm3 (0.00-0.23); BASOPHILS PERCENT AUTO 1 % (0-2); EOSINOPHILS ABSOLUTE AUTO 0.13 K/mm3 (0.00-0.68); EOSINOPHILS PERCENT AUTO 2 % (0-6); Hematocrit 32.1 % (37.0-53.0); Hemoglobin 9.8 g/dL (13.5-17.5); IMMATURE GRAN ABSOLUTE AUTO 0.02 K/mm3 (0.00-0.10); IMMATURE GRAN PERCENT AUTO 0 % (0-1); LYMPHOCYTES ABSOLUTE AUTO 1.19 K/mm3 (0.84-5.20); LYMPHOCYTES PERCENT AUTO 22 % (21-46); MONOCYTES ABSOLUTE AUTO 0.34 K/mm3 (0.16-1.47); MONOCYTES PERCENT AUTO 6 % (4-13); Mean Corpuscular HGB 31.4 pg (26.0-34.0); Mean Corpuscular HGB Conc 30.5 g/dL (31.5-36.5); Mean Corpuscular Volume 103 fL (80-100); Mean Platelet Volume 10.9 fL (9.1-12.4); NEUTROPHILS ABSOLUTE AUTO 3.58 K/mm3 (1.96-9.15); NEUTROPHILS PERCENT AUTO 67 % (41-73); Platelet Count 60 K/mm3 (150-400); RDW Coefficient Variation 17.8 % (11.7-14.2); RDW Standard Deviation 67.7 fL (35.1-46.3); Red Blood Cell Count 3.12 M/mm3 (4.30-5.90); White Blood Cell Count 5.32 K/mm3 (4.00-11.30)
[2023-12-24 06:10] LABS: Albumin, Blood 1.5 g/dL (3.4-5.0); Albumin/Globulin Ratio 0.4 (0.8-1.8); Bilirubin, Total 2.3 mg/dL (0.1-1.0); Bun/Creatinine Ratio 3.1 (12.0-20.0); Calcium, Blood 7.7 mg/dL (8.5-10.1); Creatinine, Blood 0.65 mg/dL (0.60-1.20); Globulin, Blood 3.6 g/dL (2.2-4.0); Potassium, Blood 3.6 mmol/L (3.5-5.5); Total Protein, Blood 5.1 g/dL (6.4-8.2)
[2023-12-24 08:03] VITALS: BP 98/75
--- NOTE | 2023-12-24 11:04 | NUR ---
DR DIAZ IN ROOM. D/C FLUIDS
[2023-12-24 13:02] VITALS: BP 95/59
[2023-12-24 16:02] VITALS: BP 108/64
--- NOTE | 2023-12-24 18:11 | NUR ---
PT WAS IRRITABLE AND LETHARGIC THIS AM. IMPROVED THIS AFTERNOON. ABLE TO WAKE UP ENOUGH TO WANT TO GET TO CHAIR. DONE. USED LIFT. ALERT TO SELF AND PLACE THIS AM. REMAINS JAUNDICED. LUGS CLEAR, REP EASY, UNLABORED. H/R REG, NO MURMUR NOTED. +2 EDEMA BLE AND TRUNK. NO OTHER CONCERNS NOTOED. BED IN LOW POSITION, CALL LITE IN REACH, BED ALARM ON FOR SAFETY
[2023-12-24 20:11] VITALS: BP 113/69
[2023-12-25 02:34] VITALS: BP 110/97
[2023-12-25 06:11] LABS: BASOPHILS ABSOLUTE AUTO 0.03 K/mm3 (0.00-0.23); BASOPHILS PERCENT AUTO 1 % (0-2); EOSINOPHILS ABSOLUTE AUTO 0.08 K/mm3 (0.00-0.68); EOSINOPHILS PERCENT AUTO 1 % (0-6); Hematocrit 28.4 % (37.0-53.0); Hemoglobin 8.9 g/dL (13.5-17.5); IMMATURE GRAN ABSOLUTE AUTO 0.01 K/mm3 (0.00-0.10); IMMATURE GRAN PERCENT AUTO 0 % (0-1); LYMPHOCYTES ABSOLUTE AUTO 1.15 K/mm3 (0.84-5.20); LYMPHOCYTES PERCENT AUTO 20 % (21-46); MONOCYTES ABSOLUTE AUTO 0.44 K/mm3 (0.16-1.47); MONOCYTES PERCENT AUTO 8 % (4-13); Mean Corpuscular HGB 31.4 pg (26.0-34.0); Mean Corpuscular HGB Conc 31.3 g/dL (31.5-36.5); Mean Corpuscular Volume 100 fL (80-100); Mean Platelet Volume 10.6 fL (9.1-12.4); NEUTROPHILS PERCENT AUTO 70 % (41-73); Platelet Count 54 K/mm3 (150-400); RDW Coefficient Variation 17.7 % (11.7-14.2); RDW Standard Deviation 65.7 fL (35.1-46.3); Red Blood Cell Count 2.83 M/mm3 (4.30-5.90); White Blood Cell Count 5.71 K/mm3 (4.00-11.30)
--- NOTE | 2023-12-25 06:21 | NUR ---
SHIFT SUMMARY: Pt admitted for alcoholic hepatitis and is a full code. Is alert and able to make some needs known. Has been in varying states of confusion during shift. ADLs have been 1-2p depending on activity. Did not get out of bed during shift. He did make a few attempts but was able to be redirected. Denies pain or discomfort when asked.
[2023-12-25 06:39] LABS: Albumin, Blood 1.4 g/dL (3.4-5.0); Albumin/Globulin Ratio 0.5 (0.8-1.8); Bilirubin, Total 2.3 mg/dL (0.1-1.0); Bun/Creatinine Ratio 2.6 (12.0-20.0); Calcium, Blood 7.7 mg/dL (8.5-10.1); Creatinine, Blood 0.78 mg/dL (0.60-1.20); Globulin, Blood 3.1 g/dL (2.2-4.0); Potassium, Blood 4.1 mmol/L (3.5-5.5); Total Protein, Blood 4.5 g/dL (6.4-8.2)
[2023-12-25 07:22] VITALS: BP 94/61
--- NOTE | 2023-12-25 07:26 | NUR ---
DURING RN TO RN REPORT AT SHIFT CHANGE, PATIENT REQUESTED TO GO FOR A WALK. PATIENT NOTIFIED THAT IT WILL BE UP TO PHYSICAL THERAPY AND HIM LATER IN THE DAY.
[2023-12-25] MEDS ORDERED: Multivitamins 1 Tab PO SCH (09:00)
[2023-12-25 14:38] VITALS: BP 100/59
[2023-12-25 15:45] VITALS: BP 111/64
--- NOTE | 2023-12-25 16:00 | NUR ---
Met with pt's Afshan at bedside. Pt is pleasantly confused. is tearful, states she knows it's unlikely the patient's status will improve, especially if he were to drink alcohol again. She asks we change his code status to DNR, and would like to take the patient home with hospice services.
[2023-12-25 18:36] VITALS: BP 104/71
--- NOTE | 2023-12-25 19:50 | NUR ---
SHIFT SUMMARY PATIENT WITHDRAWN MOST OF DAY, HE REFUSED TO WORK WITH PT. HE REFUSED TO WORK WITH THIS NEONATAL CRITICAL CARE NURSE WELL. NEONATAL CRITICAL CARE NURSE OFFERED TO GET HIM UP INTO CHAIR AND HE REFUSED. EDUCATION PROVIDED ON LOSS OF STRENGTH WITH DECREASED ACTIVITY.THIS NEONATAL CRITICAL CARE NURSE REPOSITIONED PATIENT EVERY 2 HOURS. PATIENT WITH HEADACHE THIS AFTERNOON, MEDICATED WITH TYLENOL, HEADACHE STILL PRESENT AND PATIENT ANGRY, HE VERBALIZES IT IS BECAUSE HE DID NOT GET CHICKEN FOR DINNER, HE THROWS A FORK ON TO HIS TABLE. NEONATAL CRITICAL CARE NURSE RENFORCED THAT THROWING THINGS IS NOT ACCEPTABLE IN THE HOSPICAL. NEONATAL CRITICAL CARE NURSE OFFERED ATAVAN 1MG IV AND PATIENT ACCEPTED. MEDICATION GIVEN AND PATIENT IS LESS ANXIOUS APPEARING AT SHIFT CHANGE. BED IN LOW POSITION, CALL LIGHT IN REACH, PATIENT DOES NOT CALL.
[2023-12-25 20:11] VITALS: BP 113/60
[2023-12-26 03:06] VITALS: BP 139/68
--- NOTE | 2023-12-26 03:54 | NUR ---
SHIFT SUMMARY PT. IS A&O X2-3, TO SELF, PLACE AND SITUATION. AROUND 2100 PT. FIRST REFUSED SCHEDULED MEDICATIOS, BUT WHEN OFFERED AT 2200, PT. AGREED TO TAKE THE MEDS. PT. REFUSED SHIFT ASSESSMENT. NOTED THAT PT. UNDER THE BLANKET, EYES ONLY VISIBLE, RR EVEN, UNLABORED. HS B. OFFERED HS SNACK WHICH PT. REFUSED. NOTED COCCYX A SMALL REDDENED AREA; APPLIED MEPILEX, SKIN INTACT, Q2HR TURNS T/O THE NIGHT. REMINDED PT. TO TURN IN BED FREQUENTLY TO KEEP PRESSURE OFF THE AREA. WILL NOTIFY THE INCOMING SHIFT NURSE. PT. HAS BEEN RESTING T/O THE NIGHT. NO ACUTE DISTRESS/EVENTS NOTED/REPORTED DURING THIS SHIFT. THIS NURSE INFORMED THE PT. FOR AVAILABLE ATIVAN ORDER, PT. DID NOT RESPOND OR REQUEST THE NEED FOR THE MED. WILL PASS TO THE INCOMING SHIFT NURSE. CALL LIGHT WITHIN REACH. BED AT THE LOWEST POSITION.
[2023-12-26 07:14] VITALS: BP 110/68
[2023-12-26 13:01] VITALS: BP 99/66
[2023-12-26 17:37] VITALS: BP 90/62
--- NOTE | 2023-12-26 17:42 | NUR ---
SHIFT SUMMARY PATIENT WITH SOME ANXIETY AND AGITATION THIS AM, MEDICATED WITH ATIVAN WITH RELEIF. REFUSING TO GET UP OUT OF BED BUT ALLOWED THIS HELPER [facility] AND DONOR SUPPORT TECHNICIAN ELYSSA TO USE LIFT TO GET HIM INTO RECLINER CHAIR THIS AFTERNOON. BED IN LOW POSITION,CALL LIGHT IN REACH. CHAIR ALARM ON.
--- NOTE | 2023-12-27 02:53 | NUR ---
SHIFT SUMMARY PT. IS A&O X 1-3, COOP WITH CARE, CONFUSED. NOTED PT.THROWING EMPTY CUPS, AND PAPER TOWELS ON THE FLOOR WHILE SITTING IN THE RECLINER THIS EVESHIFT, (CHAIR ALARM IS ON.) PT. C/O HEADACHE, TYLENOL GIVEN A ORDERED, AND ATIVAN FOR ANXIETY PER PT. REQUEST. PT.DENIES SOB OR DISCOMFORT, RR EVEN, UNLABORED. B@HS. PT. HAS BEEN RESTING WELL T/O THE NIGHT. NO ACUTE EVENTS/DISTRESS NOTED/REPORTED DURING THIS SHIFT. BED AT THE LOWEST POSITION, CALL LIGHT IN REACH. WILL HANDOFF TO THE INCOMING SHIFT NURSE.
[2023-12-27 04:31] VITALS: BP 97/69
[2023-12-27] MEDS ORDERED: LORA.5 PO (13:16)
--- NOTE | 2023-12-27 15:35 | NUR ---
Pt going home with hospice with . He denies any pain or other issues at this time. POLST completed, signed by physician. Copy sent to registry and medical records. PT DNR with comfort care.
--- NOTE | 2023-12-27 15:44 | NUR ---
PT DISCHARGED HOME WITH HOME HOSPICE. TRANSPORTED BY GURNEY. ALL BELONGS LEFT WITH PT. HARD SCRIPT IN DISHCARGE FOLDER. DISCHARGE INSTRUCTIONS DISGUST WITH PT. NO QUESTIONS OR CONCERNS AT DISCHARGE.
== END 2023-12-27 15:30 | disposition hospice, home (50) | DRG 432 ==
LOC: ER 17:31 → PCU 23:40 → ICUE 23:40 → PCU 12-15 01:08 → ICUE 12-15 05:13 → MEDS 12-17 13:45 → ENPENDDIS 12-27 13:21 → MEDS 12-27 15:30
PROVIDERS: Family Medicine; Hospitalist; Internal Medicine; Student in an Organized Health Care Education/Training Program; ADMIT Student in an Organized Health Care Education/Training Program
PROC: 30233N1 Transfusion of Nonautologous Red Blood Cells into Peripheral Vein, Percutaneous Approach (ICD-10-PCS; principal; 2023-12-14)
DX: K70.11 Alcoholic hepatitis with ascites (principal); G93.41 Metabolic encephalopathy; S32.029A Unspecified fracture of second lumbar vertebra, initial encounter for closed fracture; F10.239 Alcohol dependence with withdrawal, unspecified; N39.0 Urinary tract infection, site not specified; E46 Unspecified protein-calorie malnutrition; E87.1 Hypo-osmolality and hyponatremia; J90 Pleural effusion, not elsewhere classified; D62 Acute posthemorrhagic anemia; E87.6 Hypokalemia; K76.0 Fatty (change of) liver, not elsewhere classified; G47.33 Obstructive sleep apnea (adult) (pediatric); F19.94 Other psychoactive substance use, unspecified with psychoactive substance-induced mood disorder; B95.2 Enterococcus as the cause of diseases classified elsewhere; E78.5 Hyperlipidemia, unspecified; K58.9 Irritable bowel syndrome, unspecified; Z51.5 Encounter for palliative care; E88.09 Other disorders of plasma-protein metabolism, not elsewhere classified; E11.51 Type 2 diabetes mellitus with diabetic peripheral angiopathy without gangrene; I10 Essential (primary) hypertension; K82.8 Other specified diseases of gallbladder; E83.51 Hypocalcemia; D69.6 Thrombocytopenia, unspecified; K21.9 Gastro-esophageal reflux disease without esophagitis; E11.40 Type 2 diabetes mellitus with diabetic neuropathy, unspecified; D53.9 Nutritional anemia, unspecified; D35.00 Benign neoplasm of unspecified adrenal gland; G60.0 Hereditary motor and sensory neuropathy; G43.909 Migraine, unspecified, not intractable, without status migrainosus; Z98.84 Bariatric surgery status; Z79.899 Other long term (current) drug therapy; Z89.512 Acquired absence of left leg below knee; Z89.421 Acquired absence of other right toe(s); Z88.1 Allergy status to other antibiotic agents; Z88.5 Allergy status to narcotic agent; Z79.4 Long term (current) use of insulin; Z89.422 Acquired absence of other left toe(s); Z98.1 Arthrodesis status; Z98.890 Other specified postprocedural states; G31.2 Degeneration of nervous system due to alcohol; Z68.30 Body mass index [BMI] 30.0-30.9, adult
CPT/HCPCS: 0241U; 36415; 36430; 71046; 74177; 76705; 80053; 80074; 81001; 82140; 82248; 82533; 82607; 82746; 82803; 82947; 82977; 83010; 83036; 83540; 83550; 83605; 83615; 83690; 83735; 83880; 84100; 84443; 85014; 85018; 85025; 85045; 85610; 85651; 85730; 86140; 86850; 86900; 86901; 86923; 87040; 87077; 87086; 87186; 93005; 93010; 94760; 96361; 96365; 96366; 96368; 96375; 97110; 97112; 97129; 97161; 97165; 97530; 99285-25; A9270; C9113; G0480; J0692; J0696; J1815; J2060; J2405; J3370; J3411; J3480; J7030; J7042; J7050; J7060; P9016; P9047; Q9967